=== PATIENT | female | born 1960 | race Caucasian/White ===

== ENCOUNTER 2020-10-17 14:51 | Outpatient (REF) | payer BC, SELFPAY ==
--- NOTE | ~2020-10-17 | MM_ITS ---
EXAMINATION: MM SCREENING DIGITAL BREAST TOMOSYNTHESIS, BILATERAL CLINICAL INFORMATION: Screening. Asymptomatic. The lifetime risk of breast cancer based on the Tyrer-Cuzick Model is 5%. COMPARISON: Mammography: 08/12/2019, 08/06/2018, 01/02/2017 TECHNIQUE: Digital breast tomosynthesis is performed in both the craniocaudal and mediolateral oblique views along with computer-aided detection (CAD). Synthesized 2D images are generated from the tomosynthesis. FINDINGS: There are scattered areas of fibroglandular density (ACR BI-RADS breast composition Category b). There are no significant masses, abnormal calcifications, or other abnormalities. Parenchymal pattern is similar to prior studies. The axilla and skin contours are unremarkable. MM/MM tomosynthesis screening BI IMPRESSION: No mammographic evidence of malignancy. ASSESSMENT: BI-RADS 1: Negative RECOMMENDATION: Routine annual mammography screening. This patient's information was entered into a reminder system with a target due date for their next mammogram.
== END 2020-10-17 14:52 | disposition home or self-care (01) ==
LOC: HO.MAMMO 14:51
PROVIDERS: Visit Provider Internal Medicine
DX: Z12.31 Encounter for screening mammogram for malignant neoplasm of breast (principal)
CPT/HCPCS: 77063; 77067

== ENCOUNTER 2021-04-19 07:36 | Outpatient (REF) | payer BC, SELFPAY ==
[2021-04-19 11:16] LABS: MANUAL DIFF FLAG NO
[2021-04-19 11:57] LABS: Basophils Percent Auto 0.9 % (0-2); Eosinophils Absolute Auto 0.2 X10*3/uL (0.0-0.4); Eosinophils Percent Auto 3.4 % (0-4); Hematocrit 39.3 % (37-47); Hemoglobin 13.4 g/dl (12.0-16.0); Lymphocytes Absolute Auto 1.2 X10*3/uL (1.2-4.9); Lymphocytes Percent Auto 26.2 % (20-40); Mean Corpuscular HGB Conc 34.1 g/dl (31.0-35.0); Mean Corpuscular Hemoglobin 30.9 pg (27.0-33.0); Mean Corpuscular Volume 90.8 fL (80-98); Mean Platelet Volume 11.7 fL (9.4-12.3); Monocytes Absolute Auto 0.5 X10*3/uL (0.1-1.2); Monocytes Percent Auto 10.4 % (2-11); Neutrophils Absolute Auto 2.6 X10*3/uL (2.0-8.3); Neutrophils Percent Auto 59.1 % (45-73); Platelet Count 219 X10*3/uL (160-400); Red Blood Count 4.33 X10*6/uL (4.20-5.50); Red Cell Distribution Width 12.4 % (11.0-16.0); White Blood Count 4.4 X10*3/uL (4.8-10.8)
[2021-04-19 12:06] LABS: Thyroid Stimulating Hormone 2.23 uIU/mL (0.32-4.0)
[2021-04-19 12:15] LABS: Alanine Aminotransferase 22 U/L (0-31); Albumin Level 4.1 g/dL (3.5-5.0); Alkaline Phosphatase 90 U/L (39-117); Anion Gap 14 (12-20); Aspartate Amino Transferase 20 U/L (5-31); Bilirubin Total 0.2 mg/dL (0.0-1.0); Blood Urea Nitrogen 17 mg/dL (9-16); Calcium 9.2 mg/dL (8.4-10.2); Carbon Dioxide 24 mmol/L (22-29); Chloride 107 mmol/L (96-108); Cholesterol 282 mg/dL; Estimated Glomerular Filt Rate > 60; Glucose Fasting 89 mg/dL (60-99); HDL Cholesterol 59 mg/dL; LDL Cholesterol Calculated 203 mg/dl; Potassium 4.2 mmol/L (3.3-5.1); Sodium 141 mmol/L (135-145); Triglycerides 103 mg/dL
== END 2021-04-19 07:37 | disposition home or self-care (01) ==
LOC: HO.HMGCLDS 07:36
PROVIDERS: PCP Internal Medicine; Visit Provider Internal Medicine
DX: H53.8 Other visual disturbances (principal); R53.1 Weakness
CPT/HCPCS: 36415; 80053; 80061; 84443; 85025

== ENCOUNTER 2021-04-20 09:44 | Outpatient (REF) | payer BC, SELFPAY ==
--- NOTE | ~2021-04-20 | US_ITS ---
EXAMINATION: US EXTRACRANIAL CAROTID DUPLEX, BILATERAL CLINICAL INFORMATION: Blurry vision left eye. COMPARISON: None TECHNIQUE: Real-time ultrasound and Doppler techniques (integrating B-mode 2-D vascular images, Doppler spectral analysis and color-flow Doppler imaging) were utilized to interrogate the extracranial carotid arteries, the vertebral arteries and proximal subclavian arteries bilaterally. The degree of stenosis is determined by criteria similar to NASCET. FINDINGS: Right Side: 1. There is no atherosclerotic plaque seen in the bifurcation/proximal ICA region. 2. The common carotid artery PSV proximally is 77 cm/s and distally 74 cm/s. 3. The proximal internal carotid artery velocities are 47 cm/s systolic and 19 cm/s diastolic. 4. The proximal external carotid artery PSV is 86 cm/s. 5. The vertebral artery shows 64 flow. 6. The subclavian artery waveforms are normal. Left Side: 1. There is hard atherosclerotic plaque seen in the bifurcation/proximal ICA region. 2. The common carotid artery PSV proximally is 87 cm/s and distally 77 cm/s. 3. The proximal internal carotid artery velocities are 66 cm/s systolic and 21 cm/s diastolic. 4. The proximal external carotid artery PSV is 76 cm/s. 5. The vertebral artery shows 53 flow. 6. The subclavian artery waveforms are normal. US/US carotid duplex BI IMPRESSION: 1. RIGHT: No hemodynamically significant stenosis in right carotid artery. 2. LEFT: No hemodynamically significant stenosis in left carotid artery. 3. Normal antegrade flow seen in both vertebral arteries. 4. The subclavian arteries are patent with normal velocities.
== END 2021-04-20 09:45 | disposition home or self-care (01) ==
LOC: HO.HMGCX 09:44
PROVIDERS: PCP Internal Medicine; Visit Provider Internal Medicine
DX: H53.8 Other visual disturbances (principal)
CPT/HCPCS: 93880

== ENCOUNTER 2021-04-23 15:12 | Outpatient (REF) | payer BC, SELFPAY ==
--- NOTE | ~2021-04-23 | XR_ITS ---
EXAMINATION: XR HIP, LEFT CLINICAL INFORMATION: Hip arthritis. COMPARISON: None TECHNIQUE: Two views of the left hip. FINDINGS: No fracture or dislocation. No joint space narrowing or marginal osteophytes. No osseous erosion. No abnormal soft tissue calcification. XR/XR hip LT min 2V IMPRESSION: Unremarkable examination.
--- NOTE | ~2021-04-23 | XR_ITS ---
EXAMINATION: XR CERVICAL SPINE CLINICAL INFORMATION: Cervical spondylosis. COMPARISON: None TECHNIQUE: AP, lateral, open-mouth, and bilateral oblique views of the cervical spine. FINDINGS: Minimal grade 1 anterolisthesis of C5 and C6. No acute fracture. No loss of vertebral body height. Loss of intervertebral disc height with tiny anterior endplate osteophytes at C6-C7. No lytic or blastic osseous lesion. No significant neural foraminal stenosis. Unremarkable prevertebral soft tissues. No abnormal soft tissue calcification. XR/XR cervical spine 4V IMPRESSION: 1. Minimal grade 1 anterolisthesis of C5 and C6. 2. Mild degenerative disc disease at C6-C7.
== END 2021-04-23 15:13 | disposition home or self-care (01) ==
LOC: HO.XRAY 15:12
PROVIDERS: Visit Provider Psychiatry & Neurology Neurology
DX: M47.812 Spondylosis without myelopathy or radiculopathy, cervical region (principal); M16.12 Unilateral primary osteoarthritis, left hip
CPT/HCPCS: 72050; 73502

== ENCOUNTER 2021-05-04 18:41 | Outpatient (REF) | payer BC, SELFPAY ==
--- NOTE | ~2021-05-04 | MR_ITS ---
MRI OF THE BRAIN WITHOUT IV CONTRAST INDICATION: Right hemisphere stroke. COMPARISON: None available. TECHNIQUE: Multiplanar multisequence MR imaging of the brain was obtained without IV contrast. FINDINGS: There is a round 1.6 cm extra-axial mass at the high right frontal convexity, most compatible with a meningioma. No mass effect and no adjacent parenchymal edema. There is no hydrocephalus, extra-axial surface collection, or herniation. There is mild chronic microangiopathy. The major flow voids at the skull base are preserved. There is no acute infarct on diffusion-weighted imaging. There is artifact on the diffusion series within the left elena. There is no intracranial hemorrhage on the gradient recalled echo acquisition. The midline structures are normal. There is normal variant 2 mm cerebellar tonsillar ectopia without true Chiari malformation. The cerebellum and brainstem are normal. The craniocervical junction is normal. Osseous marrow signal intensity is homogenous. The visualized soft tissues are unremarkable. MR/MR head/brain wo con IMPRESSION: - No acute intracranial findings. No acute infarcts. - There is a round 1.6 cm extra-axial mass at the high right frontal convexity, most compatible with a meningioma. No mass effect and no adjacent parenchymal edema. - There is mild chronic microangiopathy.
== END 2021-05-04 18:42 | disposition home or self-care (01) ==
LOC: HO.MRI 18:41
PROVIDERS: Visit Provider Psychiatry & Neurology Neurology
DX: I63.9 Cerebral infarction, unspecified (principal)
CPT/HCPCS: 70551

== ENCOUNTER 2022-01-04 07:21 | Outpatient (REF) | payer BC, SELFPAY ==
[2022-01-04 11:12] LABS: MANUAL DIFF FLAG NO
[2022-01-04 11:17] LABS: Basophils Absolute Auto 0.1 X10*3/uL (0.0-0.2); Basophils Percent Auto 1.2 % (0-2); Eosinophils Absolute Auto 0.1 X10*3/uL (0.0-0.4); Eosinophils Percent Auto 2.6 % (0-4); Hematocrit 41.5 % (37.0-47.0); Hemoglobin 13.6 g/dl (12.0-16.0); Imm Gran Abs Auto 0.01 X10*3/uL (0.00-0.03); Imm Gran Pct Auto 0.2 % (0.0-0.4); Lymphocytes Absolute Auto 1.6 X10*3/uL (1.2-4.9); Lymphocytes Percent Auto 32.1 % (20-40); Mean Corpuscular HGB Conc 32.8 g/dl (31.0-35.0); Mean Corpuscular Hemoglobin 29.9 pg (27.0-33.0); Mean Corpuscular Volume 91.2 fL (80.0-98.0); Mean Platelet Volume 11.9 fL (9.4-12.3); Monocytes Absolute Auto 0.4 X10*3/uL (0.1-1.2); Monocytes Percent Auto 8.1 % (2-11); Neutrophils Absolute Auto 2.8 x10*3/uL (2.0-8.3); Neutrophils Percent Auto 55.8 % (45-73); Platelet Count 222 X10*3/uL (160-400); Red Blood Count 4.55 X10*6/uL (4.20-5.50); Red Cell Distribution Width 12.7 % (11.0-16.0); White Blood Count 5.1 X10*3/uL (4.8-10.8)
[2022-01-04 11:44] LABS: Alanine Aminotransferase 17 U/L (0-31); Albumin Level 4.1 g/dL (3.5-5.0); Alkaline Phosphatase 114 U/L (39-117); Anion Gap 10 (12-20); Aspartate Amino Transferase 18 U/L (5-31); Bilirubin Total 0.6 mg/dL (0.0-1.0); Blood Urea Nitrogen 17 mg/dL (9-16); Calcium 9.3 mg/dL (8.4-10.2); Carbon Dioxide 25 mmol/L (22-29); Chloride 107 mmol/L (96-108); Cholesterol 246 mg/dL; Estimated Glomerular Filt Rate > 60; Glucose Fasting 93 mg/dL (60-99); HDL Cholesterol 53 mg/dL; LDL Cholesterol Calculated 143 mg/dl; Potassium 4.2 mmol/L (3.3-5.1); Sodium 138 mmol/L (135-145); Total Protein 7.1 g/dL (6.5-8.0); Triglycerides 254 mg/dL
[2022-01-04 11:54] LABS: Thyroid Stimulating Hormone 2.72 uIU/mL (0.32-4.0); Vitamin D 25-OH Total 29.1 ng/mL (>30)
== END 2022-01-04 07:22 | disposition home or self-care (01) ==
LOC: HO.HMGCLDS 07:21
PROVIDERS: Visit Provider Internal Medicine
DX: E78.00 Pure hypercholesterolemia, unspecified (principal); K50.00 Crohn's disease of small intestine without complications; N39.3 Stress incontinence (female) (male); M79.671 Pain in right foot
CPT/HCPCS: 36415; 80053; 80061; 82306; 84443; 85025

== ENCOUNTER 2022-08-15 08:19 | Outpatient (REF) | payer BC, SELFPAY ==
[2022-08-15 12:01] LABS: Cholesterol 235 mg/dL; HDL Cholesterol 58 mg/dL; LDL Cholesterol Calculated 151 mg/dl; Triglycerides 134 mg/dL
[2022-08-15 12:24] LABS: Vitamin D 25-OH Total 24.7 ng/mL (>30)
== END 2022-08-15 08:20 | disposition home or self-care (01) ==
LOC: HO.HMGCLDS 08:19
PROVIDERS: PCP Internal Medicine; Visit Provider Internal Medicine
DX: K50.00 Crohn's disease of small intestine without complications (principal); E78.00 Pure hypercholesterolemia, unspecified
CPT/HCPCS: 36415; 80061; 82306

== ENCOUNTER 2022-09-27 11:34 | Outpatient (REF) | payer BC, SELFPAY ==
[2022-09-27 12:21] LABS: COVID-19 Test Positive (Negative); IDNOW Serial# 9DB6401D
== END 2022-09-27 11:35 | disposition home or self-care (01) ==
LOC: HO.LAB 11:34
PROVIDERS: Visit Provider Internal Medicine
DX: Z20.822 Contact with and (suspected) exposure to COVID-19 (principal)
CPT/HCPCS: 87635; C9803

== ENCOUNTER 2023-02-06 11:39 | Outpatient (REF) | payer BC, SELFPAY ==
--- NOTE | ~2023-02-06 | MM_ITS ---
EXAMINATION: MM SCREENING DIGITAL BREAST TOMOSYNTHESIS, BILATERAL CLINICAL INFORMATION: Screening. Asymptomatic. The lifetime risk of breast cancer based on the Tyrer-Cuzick Model is 4.1%. COMPARISON: Mammography: 10/17/2020, 08/12/2019, 08/06/2018, and dating back to 2016. TECHNIQUE: Digital breast tomosynthesis is performed in both the craniocaudal and mediolateral oblique views along with computer-aided detection (CAD). Synthesized 2D images are generated from the tomosynthesis. FINDINGS: There are scattered areas of fibroglandular density (ACR BI-RADS breast composition Category b). There are no suspicious masses, suspicious grouped calcifications, or areas of architectural distortion. The parenchymal pattern is stable from prior exams. There are no skin changes. MM/MM tomosynthesis screening BI IMPRESSION: No mammographic evidence of malignancy. ASSESSMENT: BI-RADS BI-RADS 1 - Negative RECOMMENDATION: Routine annual mammography screening. 1 year F/U This examination should not preclude the clinical evaluation of a suspicious palpable abnormality. This patient's information was entered into a reminder system with a target due date for their next mammogram.
== END 2023-02-06 11:40 | disposition home or self-care (01) ==
LOC: HO.MAMMO 11:39
PROVIDERS: PCP Internal Medicine; Visit Provider Internal Medicine
DX: Z12.31 Encounter for screening mammogram for malignant neoplasm of breast (principal)
CPT/HCPCS: 77063; 77067

== ENCOUNTER → 2023-02-06 11:45 | Outpatient (BNV) | payer BC, SELFPAY | PROVIDERS: PCP Internal Medicine; Visit Provider Radiology Diagnostic Radiology | DX: Z12.31 Encounter for screening mammogram for malignant neoplasm of breast (principal) | CPT/HCPCS: 77063; 77067 ==

== ENCOUNTER 2023-03-18 14:52 | Outpatient (AMB) | payer BC, SELFPAY ==
--- NOTE | 2023-03-18 14:56 | MHC.OFFVIS ---
Intake Intake Visit Reasons: Large Lipoma RT knee Plc Engineer Required: No Promotions Executive: Promotions Executive Present Accompanied by: Self / Same As Patient Allergies amoxicillin Allergy (Unknown, Unverified 03/18/23 15:01) hives, rash, rash, rash, rash Medication List - Last Reconciled 03/20/23 by Ugo Samayoa MD coenzyme Q10 (Co Q-10) 100 mg PO DAILY pravastatin 40 mg PO DAILY vit C-vit L-Fb-Bs-lutein-zeax 250 mg-200 unit -12.5 mg-1 mg (ICaps AREDS2 (copper citrate)) 1 tab PO BID HPI HPI Comments History of Present Illness Details 62-year-old female patient presenting for evaluation of a soft tissue lump located in the right leg as well as a painful cyst located in the left buttock. The lump has gradually increased in size has become quite noticeable just below the knee. She denies any significant pain, redness or discharge. Denies any previous surgery or trauma at this location but did report excision on the opposite side of right leg. In addition she notes a cystic lesion in the posterior left buttock which occasionally is painful. She denies any infection the site but would like to have the lesion removed. [facility] Surgical History History of urinary tract surgery History of excision of intestinal structure Social History Alcohol intake: current Alcohol intake frequency: holidays/special occasions only Patient Tobacco Use Status: Never used Tobacco Review of Systems Const All systems reviewed & are unremarkable except as noted in HPI and below Denies chills, Denies fever(s), Denies headache(s), Denies poor appetite and Denies weakness ENT Denies headache(s) Card Denies chest pain, Denies irregular heart rhythm, Denies palpitations and Denies dyspnea Resp Denies cough, Denies excessive phlegm production and Denies dyspnea GI Denies abdominal pain, Denies bloating, Denies change in bowel habits, Denies constipation, Denies heartburn, Denies diarrhea, Denies nausea and Denies vomiting Denies urinary frequency Musc Denies back pain, Denies muscle weakness and Denies numbness Skin/Breast Denies changing lesions and Denies unusual bruising Neuro Denies headache(s), Denies numbness, Denies paresthesias and Denies weakness Psych Denies anxiety and Denies depression Endo Denies palpitations Payam/Lymph Denies lymphadenopathy Physical Exam Const General: cooperative and no acute distress Nutritional Appearance: well nourished Orientation/consciousness: patient oriented x3 Limitations: no limitations HEENT Head: Yes normocephalic and Yes atraumatic Ears: hearing grossly normal bilaterally Resp Effort & Inspection: normal respiratory effort, no audible wheezes, no cough and no respiratory distress Cardio Jugular venous distension: no JVD GI Inspection: Yes normal to inspection Skin Other: Warm, dry, no rash Neuro General: patient oriented x3 Extrem Other: Soft tissue mass along the medial aspect of the right calf just below the knee measuring approximately 3-4 cm in diameter. No skin ulceration or bleeding is identified. The lesion is nontender to palpation. There is a scar along the lateral surface but appears to be unrelated to the soft tissue mass. General: Yes no clubbing, cyanosis or edema Upper/lower leg/hip images: 1. Site of palpable soft tissue mass suggestive of a lipoma, 3-4 cm in diameter. 2. 1.5 cm epidermal inclusion cyst left posterior buttock Assessment & Plan Assessment & Plan (1) Lipoma: Code(s): D17.9 - Benign lipomatous neoplasm, unspecified Qualifiers: Lipoma location: lower extremity Laterality: right Qualified Code(s): D17.23 - Benign lipomatous neoplasm of skin and subcutaneous tissue of right leg Plan: Patient presents with a soft tissue mass located in the medial right calf just below the knee. The finding is most suggestive of a lipoma. She has requested excision of this lesion. I reviewed the procedure, risks, and alternatives, and she consents to an excision of the right calf lipoma as a minor surgery under local anesthesia. (2) Epidermal inclusion cyst: Code(s): L72.0 - Epidermal cyst Plan: Patient has a 1.5 cm epidermal inclusion cyst of the right posterior buttock which does not appear to be infected at this time. I recommended an excision at the same time as the lipoma, again under local anesthesia as a minor surgery. After reviewing the procedure, risks, and alternatives, she consents to excision of the left buttock epidermal inclusion cyst. Coding Level of Care Code New Pt Level 4 (33845) Diagnoses Lipoma of right lower extremity D17.23 Lipoma location: lower extremity Laterality: right Epidermal inclusion cyst L72.0
== END 2023-03-18 15:27 | disposition home or self-care (01) ==
PROVIDERS: PCP Internal Medicine; Visit Provider Surgery
DX: D17.23 Benign lipomatous neoplasm of skin and subcutaneous tissue of right leg (principal); L72.0 Epidermal cyst
CPT/HCPCS: 99204

== ENCOUNTER → 2023-03-18 14:52 | Outpatient (BNVA) | payer BC, SELFPAY | PROVIDERS: PCP Internal Medicine; Visit Provider Surgery ==

== ENCOUNTER 2023-05-15 10:48 | Outpatient (REF) | payer MEDICARE, SELFPAY ==
[2023-05-15 10:55] VITALS: BMI 24.1
[2023-05-15 10:57] VITALS: BP 108/60; PULSE 69; RESP 16; TEMP 36.4; O2SAT 99
[2023-05-15 12:20] VITALS: BP 119/71; PULSE 74; RESP 16; O2SAT 97
--- NOTE | 2023-05-15 12:41 | W.PM.OPN ---
Operative Note Operative Note Date of Service: 05/15/23 Narrative: Preoperative diagnosis: Lipoma right leg, cyst left buttock Postoperative diagnosis: Lipoma right leg, lipoma left buttock Procedure: Excision lipoma right leg and left buttock Surgeon: Ugo Samayoa MD Insurance Sales Professional: None Anesthesia: Sensorcaine 0.5% with epinephrine Indications for procedure: 63-year-old female patient presenting with a soft tissue mass located over the right leg just below the knee as well as a cystic appearing lesion in the left mid buttock. Lesion in the knee measured approximately 6 cm in diameter while the lesion in the left buttock measured approximately 1.5 cm. Operative findings: Lipoma of right leg, 6 cm, lipoma left buttock 1.5 cm Specimen: Lipoma of right leg and left buttock Estimated blood loss: 5 mL Complications: None Procedure details: Patient was brought to the minor surgery suite and placed in a supine position. The site of the lipoma in the right leg was confirmed by the patient. The site of the left buttock lesion was also confirmed by the patient. After assuring informed consent the skin of the right leg was prepped with Betadine and draped in a sterile fashion. Local anesthesia was then infiltrated in longitudinal fashion directly over the lipoma. Incision was then made with a 15 blade and carried out through subcutaneous tissue. Hemostasis was assured using 4-0 Polysorb suture. Dissection was continued down to lipoma. Lipoma was firmly adherent to the surrounding tissue and was excised circumferentially. Several suture pods were identified extending laterally and inferiorly. These were included in the specimen. The lesion was completely excised and sent to pathology for further examination. After assuring hemostasis the dermis was reapproximated using interrupted 4-0 Polysorb sutures. Skin was then closed using a running subcuticular 4-0 Polysorb suture. Steri-Strips, 2 x 2 gauze and Tegaderm were then applied. Attention was then directed to the left buttock lesion. She was placed in a prone position. The skin over the lesion was then prepped with Betadine and draped in a sterile fashion. An elliptical incision was then made oriented transversely around the palpable lesion. This was carried out through subcutaneous tissue down to the lesion. This was determined to be a lipoma. The lesion was passed off the table and sent to pathology for further examination. Dermis was then reapproximated using interrupted 4-0 Polysorb suture. Skin was closed using interrupted 4-0 nylon suture. Sterile dressings consisting of 2 x 2 gauze and Tegaderm were then applied. The patient tolerated the procedure well. She was discharged to home in stable condition.
== END 2023-05-15 10:49 | disposition home or self-care (01) ==
LOC: HO.MS 10:48
PROVIDERS: Visit Provider Surgery
PROC: (CPT 11406; principal; 2023-05-15 11:00)
PROC: (CPT 11406; 2023-05-15 11:00)
DX: D17.23 Benign lipomatous neoplasm of skin and subcutaneous tissue of right leg (principal); D17.1 Benign lipomatous neoplasm of skin and subcutaneous tissue of trunk
CPT/HCPCS: 11406; 11402; 88304

== ENCOUNTER → 2023-05-15 10:48 | Outpatient (BNV) | payer MEDICARE, SELFPAY | PROVIDERS: Visit Provider Surgery | DX: D17.23 Benign lipomatous neoplasm of skin and subcutaneous tissue of right leg (principal); D17.1 Benign lipomatous neoplasm of skin and subcutaneous tissue of trunk | CPT/HCPCS: 21930; 27632 ==

== ENCOUNTER 2023-05-29 09:18 | Outpatient (AMB) | payer BC, MEDICARE, SELFPAY ==
[2023-05-29 09:28] VITALS: BP 115/55; PULSE 64
--- NOTE | 2023-05-29 09:28 | MHC.OFFVIS ---
Intake Vital Signs 05/29/23 09:28 Weight 147 lb BP 115/55 L Blood Pressure Location Rt brachial Position Sitting Pulse 64 Intake Visit Reasons: S/p Exc lipoma RT lower extremity Intake Note: Patient is seen in office for post op assessment post excision lipoma right leg and left buttock. Reports incisions healing well. Steri strip on Rt lower leg fell off. MS: 05/15/23 Cps Team Lead Required: No Accompanied by: Self / Same As Patient Allergies amoxicillin Allergy (Unknown, Unverified 05/29/23 09:29) hives, rash, rash, rash, rash HPI HPI Comments History of Present Illness Details Patient returns following excision of a lipoma of the right leg and right posterior buttock. She tolerated the procedure well and reports no problems after the surgery. Pathology confirmed lipoma both locations. She returns today for suture removal and wound check. [facility] Surgical History History of excision of mass (05/15/23) History of urinary tract surgery History of excision of intestinal structure Social History Alcohol intake: current Alcohol intake frequency: holidays/special occasions only Patient Tobacco Use Status: Never used Tobacco Physical Exam Vital Signs: Last Vital Signs Pulse 64 05/29/23 09:28 BP 115/55 L 05/29/23 09:28 Const General: healthy appearing Extrem Other: Right lower extremity incision is clean, dry, and intact without hematoma or seroma. No evidence of wound infection. Right buttock wound is clean, dry, and intact. Sutures are intact. The sutures removed incision found to be well healed. Assessment & Plan Assessment & Plan (1) Lipoma: Code(s): D17.9 - Benign lipomatous neoplasm, unspecified Qualifiers: Lipoma location: lower extremity Laterality: right Qualified Code(s): D17.23 - Benign lipomatous neoplasm of skin and subcutaneous tissue of right leg Plan 63-year-old female patient status post excision of lipoma of the right leg and right buttock. She tolerated the procedure well and her wounds are healing nicely. Pathology confirmed a lipoma at both sites. She should follow up as needed. Coding Level of Care Code Global (23023) Diagnoses Lipoma of right lower extremity D17.23 Lipoma location: lower extremity Laterality: right
== END 2023-05-29 09:42 | disposition home or self-care (01) ==
PROVIDERS: PCP Internal Medicine; Visit Provider Surgery
DX: D17.23 Benign lipomatous neoplasm of skin and subcutaneous tissue of right leg (principal)
CPT/HCPCS: 99024

== ENCOUNTER → 2023-05-29 09:18 | Outpatient (BNVA) | payer BC, MEDICARE, SELFPAY | PROVIDERS: PCP Internal Medicine; Visit Provider Surgery ==

== ENCOUNTER 2023-06-16 08:50 | Outpatient (REF) | payer MEDICARE, SELFPAY ==
[2023-06-16 12:01] LABS: Cholesterol 207 mg/dL (<200); HDL Cholesterol 60 mg/dL (>40); LDL Cholesterol Calculated 118 mg/dL (<100); Triglycerides 147 mg/dL (<150)
[2023-06-16 12:21] LABS: Vitamin D 25-OH Total 35.7 ng/mL (>30)
== END 2023-06-16 08:51 | disposition home or self-care (01) ==
LOC: HO.HMGCLDS 08:50
PROVIDERS: PCP Internal Medicine; Visit Provider Internal Medicine
DX: E78.00 Pure hypercholesterolemia, unspecified (principal); K50.00 Crohn's disease of small intestine without complications
CPT/HCPCS: 36415; 80061; 82306

== ENCOUNTER 2023-09-23 16:15 | Outpatient (REF) | payer MEDICARE, OTHER, SELFPAY ==
--- NOTE | ~2023-09-23 | MR_ITS ---
EXAMINATION: MR BRAIN WITHOUT AND WITH CONTRAST CLINICAL INFORMATION: Meningioma. Follow-up. COMPARISON: Brain MRI 05/04/2021. TECHNIQUE: Multiplanar MR imaging of the brain was performed without and with contrast. A total of 6 mL Gadavist was utilized for this examination. FINDINGS: Postcontrast images reveal an enhancing dome-shaped dural based mass over the right frontal convexity that measures up to 1.7 cm in maximal transaxial dimension which represents no substantial change when compared to prior brain MRI from 05/04/2021. There are no abnormal signal changes within the adjoining right superior frontal gyrus. No abnormal mass or enhancement visualized elsewhere within the intracranial compartment. There is no intracranial mass effect or midline shift. Lateral and third ventricles are normal. No hydrocephalus. Midline structures including the cervicomedullary junction are normal. No acute bone marrow signal changes. There are a few scattered nonspecific foci of T2 FLAIR signal hyperintensity within the periventricular white matter. No acute territorial infarct. No pathological magnetic susceptibility artifact. Intracranial vascular flow voids are maintained. There is no mastoid middle ear effusion. Trivial mucosal thickening within the ethmoid air cells. Globes and orbits are symmetric. MR/MR head/brain wo/w con IMPRESSION: Stable examination. The size of a right frontal convexity meningioma has not substantial changed when compared to prior imaging from 05/04/2021. No abnormal signal changes within the adjoining right superior frontal gyrus.
[2023-09-23] MEDS: gadobutroL 7.5 ML VIAL IVPUSH (17:13)
== END 2023-09-23 16:16 | disposition home or self-care (01) ==
LOC: HO.MRI 16:15
PROVIDERS: PCP Internal Medicine; Visit Provider Internal Medicine
DX: D32.9 Benign neoplasm of meninges, unspecified (principal)
CPT/HCPCS: 70553; A9585

== ENCOUNTER 2023-11-08 08:00 | Outpatient (REF) | payer MEDICARE, OTHER, SELFPAY ==
[2023-11-08 11:33] LABS: MANUAL DIFF FLAG NO
[2023-11-08 11:46] LABS: Basophils Absolute Auto 0.1 X10*3/uL (0.0-0.2); Basophils Percent Auto 1.5 % (0-2); Eosinophils Absolute Auto 0.1 X10*3/uL (0.0-0.4); Eosinophils Percent Auto 2.7 % (0-4); Hematocrit 41.4 % (37.0-47.0); Hemoglobin 13.9 g/dl (12.0-16.0); Imm Gran Abs Auto 0.01 X10*3/uL (0.00-0.03); Imm Gran Pct Auto 0.2 % (0.0-0.4); Lymphocytes Absolute Auto 1.6 X10*3/uL (1.2-4.9); Lymphocytes Percent Auto 39.7 % (20-40); Mean Corpuscular HGB Conc 33.6 g/dl (31.0-35.0); Mean Corpuscular Hemoglobin 30.2 pg (27.0-33.0); Mean Corpuscular Volume 89.8 fL (80.0-98.0); Mean Platelet Volume 11.7 fL (9.4-12.3); Monocytes Absolute Auto 0.4 X10*3/uL (0.1-1.2); Monocytes Percent Auto 9.5 % (2-11); Neutrophils Absolute Auto 1.9 x10*3/uL (2.0-8.3); Neutrophils Percent Auto 46.4 % (45-73); Platelet Count 211 X10*3/uL (160-400); Red Blood Count 4.61 X10*6/uL (4.20-5.50); Red Cell Distribution Width 13.1 % (11.0-16.0)
[2023-11-08 12:25] LABS: Alanine Aminotransferase 13 U/L (0-31); Albumin Level 4.1 g/dL (3.5-5.0); Alkaline Phosphatase 95 U/L (39-117); Anion Gap 11 (12-20); Aspartate Amino Transferase 17 U/L (5-31); Bilirubin Total 0.5 mg/dL (0.0-1.0); Blood Urea Nitrogen 16 mg/dL (9-16); Calcium 9.5 mg/dL (8.4-10.2); Carbon Dioxide 26 mmol/L (22-29); Chloride 108 mmol/L (96-108); Cholesterol 207 mg/dL (<200); Estimated Glomerular Filt Rate > 60; Glucose Fasting 89 mg/dL (60-99); HDL Cholesterol 54 mg/dL (>40); LDL Cholesterol Calculated 132 mg/dL (<100); Potassium 4.3 mmol/L (3.3-5.1); Sodium 141 mmol/L (135-145); Total Protein 7.1 g/dL (6.5-8.0); Triglycerides 109 mg/dL (<150); Vitamin D 25-OH Total 42.3 ng/mL (>30)
[2023-11-08 12:32] LABS: Folate 5.3 ng/mL (> or = 4.0); Vitamin B12 244 pg/mL (200-900)
== END 2023-11-08 08:01 | disposition home or self-care (01) ==
LOC: HO.HMGCLDS 08:00
PROVIDERS: PCP Internal Medicine; Visit Provider Internal Medicine
DX: E78.00 Pure hypercholesterolemia, unspecified (principal); K50.00 Crohn's disease of small intestine without complications; D32.9 Benign neoplasm of meninges, unspecified
CPT/HCPCS: 36415; 80053; 80061; 82306; 82607; 82746; 84443; 85025

== ENCOUNTER 2023-12-26 09:39 | Outpatient (AMB) | payer MEDICARE, OTHER, SELFPAY ==
[2023-12-26 09:38] VITALS: BP 112/78; PULSE 73; TEMP 36.2; O2SAT 99; BMI 23.1
--- NOTE | 2023-12-26 09:38 | MHC.OFFWIV ---
Intake Vital Signs 12/26/23 09:38 Height 5 ft 5 in Weight 139 lb BMI 23.1 BP 112/78 Blood Pressure Location Lt brachial Position Sitting Pulse 73 Pulse Source Pulse Oximeter Temp 97.2 F Temp Source Temporal Artery Scan Pulse Oximetry (%) 99 Oxygen Delivery Method Room Air Intake Visit Reasons: EP Sinus pressure/ears blocked Intake Note: pt is here today for sinus pressure ear blocked started 2 weeks ago Patient Tobacco Use Status: Never used Tobacco Allergies amoxicillin Allergy (Unknown, Unverified 12/26/23 09:43) hives, rash, rash, rash, rash Do you need a note to return to daycare/school/sports/work: No HPI HPI Comments History of Present Illness Details This is a 63-year-old female who presented to the walk-in clinic complaining of blocked ears and sinus congestion. Patient states her symptoms started with blocked ears approximately 2 weeks ago. She went swimming and got some water in her ears. She states her ears have been black since then. She then started to develop sinus congestion. She denies any significant rhinorrhea or nasal drainage. She denies fevers or chills. She states her ears are slightly sore in the morning although denies any otalgia throughout the day. [facility] Surgical History History of excision of mass (05/15/23) History of urinary tract surgery History of excision of intestinal structure Social History Alcohol intake: current Alcohol intake frequency: holidays/special occasions only Comment: NONE Patient Tobacco Use Status: Never used Tobacco Review of Systems Const All systems reviewed & are unremarkable except as noted in HPI and below Reports no additional complaints Eyes Reports no additional complaints ENT Reports no additional complaints Card Reports no additional complaints Resp Reports no additional complaints GI Reports no additional complaints Reports no additional complaints Musc Reports no additional complaints Skin/Breast Reports system reviewed and no additional complaints, except as documented Neuro Reports no additional complaints Psych Reports no additional complaints Endo Reports no additional complaints Payam/Lymph Reports no additional complaints Aller/Immun Reports no additional complaints Physical Exam Vital Signs: Last Vital Signs Temp 97.2 F 12/26/23 09:38 Pulse 73 12/26/23 09:38 BP 112/78 12/26/23 09:38 Pulse Ox 99 12/26/23 09:38 Oxygen Delivery Method Room Air 12/26/23 09:38 BMI result Body Mass Index 23.1 Const Other: Vital signs reviewed. Constitutional: Non-toxic appearing. No acute distress. Well-developed and well-nourished. HEENT: Normocephalic and atraumatic. Bilateral cerumen impaction. Following cerumen removal, patient's external auditory canals are clear without erythema, edema, or otorrhea. Her tympanic membranes are clear bilaterally without bulging or erythema. Skin: Warm and dry. No rashes or lesions noted. Neck: Full and painless range of motion. No cervical lymphadenopathy. Cardio: Regular rate. No lower extremity edema. Pulmonary: No respiratory distress. No accessory muscle usage. Musculoskeletal: Normal range of motion in joints throughout the body. No deformity or other signs of injury. Neuro: Alert and oriented x4. Cranial nerves 2-12 grossly intact. No focal deficits appreciated. Psych: Normal mood and affect. Office Procedures Cerumen Removal From which ear canal was the cerumen removed: bilateral Removal: irrigation and cerumen loop/spoon Notes: patient tolerated procedure well (She did have some mild nausea following procedure although this has resolved.) and ear canal clear [id number] Irrigation/Lavage Assessment & Plan Assessment & Plan (1) Bilateral impacted cerumen: Code(s): H61.23 - Impacted cerumen, bilateral Plan: This is a 63-year-old female who presented to the walk-in clinic complaining of blocked ears and sinus congestion for the past 2 weeks. On physical examination, she has cerumen impaction bilaterally. Cerumen removal was performed. On re-examination, patient feels significantly better and her external auditory canals are clear without any evidence of otitis media or otitis externa. Recommended utilizing decongestant such as pseudoephedrine or guaifenesin. I also recommended the patient utilize [id number] Debrox drops if this happens again. Patient bought ear plugs to utilize the next time she swims in her pool. Patient advised to follow-up here for persistent/worsening or recurrent symptoms. Patient verbalized understanding and is agreeable with the plan. Coding Level of Care Code Est Pt Level 3 (55787) Diagnoses Bilateral impacted cerumen H61.23 CPT Codes Office Procedure - CPT: 53496-Hba Irrigation/Lavage ([id number])
== END 2023-12-26 10:27 | disposition home or self-care (01) ==
PROVIDERS: PCP Internal Medicine; Visit Provider Physician Assistant Medical
DX: H61.23 Impacted cerumen, bilateral (principal)
CPT/HCPCS: 69210; 99213

== ENCOUNTER 2024-02-16 07:53 | Outpatient (REF) | payer MEDICARE, OTHER, SELFPAY ==
--- NOTE | ~2024-02-16 | MM_ITS ---
EXAMINATION: MM SCREENING DIGITAL BREAST TOMOSYNTHESIS, BILATERAL CLINICAL INFORMATION: Screening. Asymptomatic. COMPARISON: Mammography: This study is compared with prior exams dating back to 2016. TECHNIQUE: Digital breast tomosynthesis is performed in both the craniocaudal and mediolateral oblique views along with computer-aided detection (CAD). Synthesized 2D images are generated from the tomosynthesis. FINDINGS: There are scattered areas of fibroglandular density (ACR BI-RADS breast composition Category b). There are no significant masses, abnormal calcifications, or other abnormalities. MM/MM tomosynthesis screening BI IMPRESSION: No mammographic evidence of malignancy. ASSESSMENT: BI-RADS BI-RADS 1 - Negative RECOMMENDATION: Routine annual mammography screening. 1 year F/U This examination should not preclude the clinical evaluation of a suspicious palpable abnormality. This patient's information was entered into a reminder system with a target due date for their next mammogram. Electronically signed by: Gladys Jalloh MD 03/16/2024 06:40 AM EDT
== END 2024-02-16 07:54 | disposition home or self-care (01) ==
LOC: HO.MAMMO 07:53
PROVIDERS: PCP Internal Medicine; Visit Provider Internal Medicine
DX: Z12.31 Encounter for screening mammogram for malignant neoplasm of breast (principal)
CPT/HCPCS: 77063; 77067

== ENCOUNTER → 2024-02-16 08:00 | Outpatient (BNV) | payer MEDICARE, OTHER, SELFPAY | PROVIDERS: PCP Internal Medicine; Visit Provider Radiology Diagnostic Radiology | DX: Z12.31 Encounter for screening mammogram for malignant neoplasm of breast (principal) | CPT/HCPCS: 77063; 77067 ==

== ENCOUNTER 2024-09-01 08:58 | Outpatient (AMB) | payer MEDICARE, OTHER, SELFPAY ==
--- NOTE | 2024-09-01 08:59 | A.OFFPC_ITS ---
Vital Signs 09/01/24 09:10 Height 5 ft 4.5 in Weight 146 lb BMI 24.7 BP 104/60 Blood Pressure Location Rt brachial Pulse 73 Pulse Source Pulse Oximeter Temp 97.2 F Pulse Oximetry (%) 98 Intake Visit Reasons: 6 month follow up Intake Note: no other issues Allergies amoxicillin Allergy (Unknown, Verified 09/01/24 09:22) hives, rash, rash, rash, rash Medication List - Last Reconciled 09/01/24 by Nadira Terry PA-C coenzyme Q10 (Co Q-10) 100 mg PO DAILY magnesium citrate 100 mg PO DAILY [id number] 200 mcg-15 mcg- 5 mg-1 mg (PreserVision AREDS 2 Plus Multivit) caps PO pravastatin 40 mg PO DAILY sumatriptan succinate take 1 tab at onset of headache; if no relief may repeat 1 tab after at least 2 hrs; max = 4 tabs/24 hr PO PFSH Medical History History of mammogram (~02/16/24) Migraine headache Meningioma Macular degeneration Plantar fasciitis of right foot Blurry vision, left eye Weakness of left side of body Crohn's disease Mild hypercholesterolemia Surgical History History of colonoscopy (~05/24/20) History of excision of mass (05/15/23) History of urinary tract surgery History of excision of intestinal structure Social History Alcohol intake: current Alcohol intake frequency: holidays/special occasions only Comment: NONE Patient Tobacco Use Status: Never used Tobacco Physical exam (Primary Care) Vital Signs: Last Vital Signs Temp 97.2 F 09/01/24 09:10 Pulse 73 09/01/24 09:10 BP 104/60 09/01/24 09:10 Pulse Ox 98 09/01/24 09:10 BMI result Body Mass Index 24.7 Tobacco/Smoking Status: Tobacco use Status Patient Tobacco Use Status Never used Tobacco 09/01/24 09:01 Coding Level of Care Code Est Pt Level 4 (81275) Complex EM visit Add On G2211 Diagnoses Follow-up exam, 3-6 months since previous exam Z09 Migraine headache G43.909 Meningioma D32.9 Macular degeneration H35.30 Plantar fasciitis of right foot M72.2 Crohn's disease K50.90 Mild hypercholesterolemia E78.00 Assessment & Plan Assessment & Plan (1) Follow-up exam, 3-6 months since previous exam: Code(s): Z09 - Encounter for follow-up examination after completed treatment for conditions other than malignant neoplasm Category: Medical (2) Migraine headache: Code(s): G43.909 - Migraine, unspecified, not intractable, without status migrainosus Category: Medical Plan: Patient to continue migraine 100 mg daily. Patient to continue p.r.n. sumatriptan. Patient to continue following up with Neurology as needed. Condition is chronic and stable continue to monitor. (3) Meningioma: Code(s): D32.9 - Benign neoplasm of meninges, unspecified Category: Medical Plan: Patient to continue following up with Neurology as needed. Condition is chronic and stable continue to monitor. (4) Macular degeneration: Code(s): H35.30 - Unspecified macular degeneration Category: Medical Plan: Patient to continue following up with Ophthalmology for injections in her eyes. Condition is chronic and stable continue to monitor. (5) Plantar fasciitis of right foot: Code(s): M72.2 - Plantar fascial fibromatosis Category: Medical Plan: Condition is chronic and stable continue to monitor. (6) Crohn's disease: Code(s): K50.90 - Crohn's disease, unspecified, without complications Category: Medical Plan: Condition is chronic and stable continue to monitor. (7) Mild hypercholesterolemia: Code(s): E78.00 - Pure hypercholesterolemia, unspecified Category: Medical Plan: Patient to continue coat enzyme Q10, pravastatin 40 mg. Her last LDL was on 11/08/2023 which was 132. Total cholesterol 207. Triglycerides 109. HDL 54. We would like the total cholesterol less than 200 the LDL less than 100. Will reassess labs at this visit. Will continue to monitor. Condition is chronic and stable continue to monitor. Plan Plan - Recheck fasting lipid panel to monitor hypercholesterolemia. - Continue management of migraines with magnesium and sumatriptan as needed. - Maintain dietary management for Crohn?s disease and observe symptomology. - No current need for follow-up on meningioma, per neurologist's advice. - Follow up on blood work to monitor cholesterol and other routine labs. - Encourage ongoing monitoring of macular degeneration with polisher eyeglass frames. Orders: Orders Complete Blood Count Auto Diff Today Z00.00 - Encounter for general adult medi isabel examination without abnormal findings Liver Panel Today Z00.00 - Encounter for general adult medical examination without abnormal findings Vitamin B12 and Folate Today Z00.00 - Encounter for general adult medical examination without abnormal findings Vitamin D 25-OH Total Today Z00.00 - Encounter for general adult medical examination without abnormal findings TSH reflex Free T4 Today Z00.00 - Encounter for general adult medical examination without abnormal findings Comprehensive [place]. Panel Fast Today Z00.00 - Encounter for general adult medical examination without abnormal findings Hemoglobin A1c Today Z00.00 - Encounter for general adult medical examination without abnormal findings Lipid Panel Today Z00.00 - Encounter for general adult medical examination without abnormal findings Magnesium Today Z00.00 - Encounter for general adult medical examination without abnormal findings Vitamin B1 Today Z00.00 - Encounter for general adult medical examination without abnormal findings C Reactive Protein Today Z00.00 - Encounter for general adult medical examination without abnormal findings Patient Instructions: Patient Instructions - Perform fasting lipid panel as soon as possible. - Continue taking pravastatin and magnesium as prescribed. - Use sumatriptan for severe migraine episodes only. - Maintain dietary precautions for Crohn?s disease. - Schedule follow-up in six months. - Call if any new symptoms or concerns arise. Scribe Plan - Not visible on output: History of Present Illness The patient is a 64-year-old female presenting for a six-month follow-up. She has a history of hypercholesterolemia, for which she takes pravastatin 40 mg daily at night and Coenzyme Q10. Her cholesterol level was last recorded as slightly elevated at 207, with LDL at 132, and these have been somewhat consiste nt over time. She also has a history of chronic migraines managed by magnesium supplementation and sumatriptan for acute episodes; she reports seeing a neurologist for these issues after her previous neurologist retired. The patient previously experienced left-sided weakness, which prompted neurologic evaluation, revealing a meningioma deemed non-concerning by her neurologist. She manages her Crohn?s disease through dietary modifications and reports being problem-free. Her past episodes of plantar fasciitis have resolved. Additionally, she has macular degeneration in her left eye, receiving regular injections to manage the condition, impacting her depth perception. She expresses difficulty driving at night due to her vision issues. Social History - Lives with her . 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 - Independently manages daily activities such as cooking, cleaning, and grocery shopping. - Avoids driving at night due to vision issues. Review of Systems - Ophthalmologic: Reports macular degeneration; complains of difficulty with depth perception. - Gastrointestinal: Denies recent abdominal pain, diarrhea, or blood in stools. - Musculoskeletal: Denies current heel pain. - Neurologic: Denies current weakness or falls. Physical Exam Appearance: Alert. Oriented X3. No acute distress. Head: Normal external exam. Normocephalic. Atraumatic. Eyes: Pupils are equal, round, and reactive to light. Extraocular movements intact. Conjunctiva and sclera normal. Eyelids normal. Macular degeneration noted. Patient receives eye injections in the left eye. Ears: External auditory canal normal. Tympanic membranes normal. Throat: Pharynx normal. Uvula midline. Moist mucous membranes. Neck: Normal inspection. Neck supple. Full range of motion. No adenopathy. Thyroid Normal. No meningeal signs. No neck mass noted. Cardiovascular: Normal heart rate and rhythm. Heart sound normal. No murmurs noted. Pulses normal throughout. Respiratory: No respiratory distress. Painless inspiration. Breath sounds normal. No wheezes/rales/rhonchi noted. Chest nontender. No accessory muscle usage noted or decreased air movement noted. Abdomen: Soft and nontender. Bowel sounds normal in all 4 quadrants. No distention noted. No organomegaly noted. No visible injury noted. Back: No costovertebral angle tenderness. Full range of motion noted. Skin: Skin warm and dry. Normal skin color. Normal skin turgor. No rashes/lesions/lacerations noted. Extremities: No lower extremity edema. Extremities exhibit normal range of motion. Extremities nontender. Neuro: Oriented X 3. No motor deficit. No sensory deficit. Reflexes normal. History of left-sided weakness and meningioma noted, but currently normal. Results - Labs: Cholesterol last known to be slightly high at 207, with LDL at 132. - Diagnostics: Colonoscopy last performed on 05/24/2020. Plan - Recheck fasting lipid panel to monitor hypercholesterolemia. - Continue management of migraines with magnesium and sumatriptan as needed. - Maintain dietary management for Crohn?s disease and observe symptomology. - No current need for follow-up on meningioma, per neurologist's advice. - Follow up on blood work to monitor cholesterol and other routine labs. - Encourage ongoing monitoring of macular degeneration with polisher eyeglass frames. Patient was informed and verbally consented to the use of an ambient scribe for clinic note documentation during this visit. Discussion Notes I discussed with the patient the need for monitoring her cholesterol levels and maintaining her current medication regimen. We reviewed her migraine management plan and dietary modifications for Crohn?s disease, with no need for new medications. I reassured her about the non-concerning nature of her meningioma. We agreed on the importance of following up on her routine blood work and keeping appointments with her polisher eyeglass frames for macular degeneration management. The patient will follow up in six months. Patient Instructions - Perform fasting lipid panel as soon as possible. - Continue taking pravastatin and magnesium as prescribed. - Use sumatriptan for severe migraine episodes only. - Maintain dietary precautions for Crohn?s disease. - Schedule follow-up in six months. - Call if any new symptoms or concerns arise.
--- OUTSIDE RECORDS SUMMARY | 2024-09-01 09:08 | XMS_ITS ---
Author Organization Reynold George DO FACP Address [address] [place], [place] [id number] Care Team Providers Care Pest Control Worker Helper Name Role Phone Reynold George Primary Care Provider REASON FOR VISIT 6 month f/u SOCIAL HISTORY Sex Assigned At : Social History Observation Description Sex Assigned At Female Encounters Encounter Location Date Provider Diagnosis Reynold George DO, FACP [address] [place] [phone] 09/01/2024 Reynold George PLAN OF TREATMENT No Information
--- OUTSIDE RECORDS SUMMARY | 2024-09-01 09:08 | XMS_ITS ---
Author Organization Reynold George DO [facility] Address [address] [place], [place] [id number] Care Team Providers Care Furnace Combination Analyst Name Role Phone Reynold George Primary Care Provider REASON FOR REFERRAL Reason Large breasts Diagnosis 1 Large breasts (N62) Referral Organization Reynold Raza O, [facility] Referring Provider First Name Reynold Referring Provider Last Name Doris Referring Provider Speciality Internal M edicine Referred Provider Brandon Giraldo Referred Provider Specialty Plastic and Reconstructive Surgery General Notes Page,Kelley 4 01:03:49 PM EST > Referral faxed prior to scheduling. Referral Priority Routine REASON FOR VISIT Message SOCIAL HISTORY Sex Assigned At : Social History Observation Description Sex Assigned At Female Encounters Encounter Location Date Provider Diagnosis Reynold George DO, [facility] [address] [place], [place] [phone] 06/22/2024 Reynold George Large breasts N62 ASSESSMENTS Encounter Date Diagnosis Assessment Notes Treatment Notes Treatment Clinical Notes 06/22/2024 Large breasts (ICD-10 - N62) PLAN OF TREATMENT Referrals Referral Date Details Brandon Lyn Consultation Request Notes Referral Date Referring Provider Referred Provider Not topher 06/22/2024 Reynold George [place] Large breast s
--- OUTSIDE RECORDS SUMMARY | 2024-09-01 09:08 | XMS_ITS ---
Author Organization Reynold George DO, FACP Address [address] [facility] [place] [id number] Care Team Providers Care Water Pumper Name Role Phone Reynold George Primary Care Provider ALLERGIES Allergen (clinical drug ingredient) Drug/Non Drug Allergy documented on EMR Reaction Allergy Type Onset Date Status amoxicillin Amoxicillin rash Drug Allergy Act nilda REASON FOR VISIT 6 month f/u, Follow up Migraine, unspecified, not intractable, without status migrainosus, meningioma, hypercholesterolemia MEDICATIONS Medication SIG (Take, Route, Frequency, Duration) Notes Start Date End Date Status Pravastatin Sodium 40 MG 1 tablet Orally Once a day Active SUMAtriptan Succinate 25 MG 1 tablet at least 2 hours between doses as needed Orally Twice a day Active Magnesium 400 MG 1 capsule with food Orally Once a day Active Coenzyme Q-10 100 MG 1 capsule with a me al Orally Once a day 05/12/2019 Active PreserVision AREDS 2 - 1 capsule Orally Once a day Active SOCIAL HISTORY Tobacco Use: Social History Observation Description Date Details (start date - stop date) Never Smoker NA - NA Sex Assigned At : Social History Observation Description Sex Assigned At Female Tobacco Use/Smoking Question Answer Notes Patient is a nonsmoker Additional Findings: Tobacco Non-User Cu rrent non-smoker, currently using no form of tobacco Alcohol Screen Question Answer Notes Did you have a drink contain ing alcohol in the past year? Yes How often did you have a dri nk containing alcohol in the past year? Monthly or less (1 point) How many drinks did you have on a typical day when you were drinking in the past year? 1 or 2 drinks (0 point) How often did you have 6 or more drinks on one occasion in the past year? Never (0 point) Points 1 Interpretation Negative VITAL SIGNS BMI 23.08 kg/m2 02/25/2024 Blood pressure systolic 96 mm Hg 02/25/20 24 Blood pressure diastolic 62 mm Hg 024 Height 66.00 in 02/25/2024 Weight 143 lbs 02/25/2024 Encounters Encounter Location Date Provider Diagnosis Reynold George DO, [facility] [address] [place], [place] [phone] 02/25/2024 Reynold George Meningioma D32.9 ; Migraine, unspecified, not intractable, without status migrainosus G43.909 and Hypercholesterolemia E78.00 ASSESSMENTS Encounter Date Diagnosis Assessment Notes Treatment Notes Treatment Clinical Notes 02/25/2024 Meningioma (ICD-10 - D32.9) Stable 02/25/2024 Migraine, unspecifie d, not intractable, without status migrainosus (ICD-10 - G43.909) 02/25/2024 Hypercholesterolemia (ICD-10 - E78.00) PLAN OF TREATMENT Medication Medication Name Sig Start Date Stop Date Notes Pravastatin Sodium 40 MG 1 tablet Orally Once a day SUMAtriptan Succinate 25 MG 1 tablet at least 2 hours between doses as needed Orally Twice a day Magnesium 400 MG 1 capsule with food Orally Once a day Coenzyme Q-10 100 MG 1 capsule with a me al Orally Once a day 05/12/2019 PreserVision AREDS 2 - 1 capsule Orally Once a day Treatment Notes Assessment Notes Meningioma Stable Next Appt Details Follow Up: 6 Months, Reason: follow up visit Progress Notes * Examination Category Sub-Category Detail Notes General Examination GENERAL APPEARANCE: in no ac bunny distress, well developed, well nourished HEAD: normocephalic, atrau matic HEART: no murmurs, regular rate and rhythm, S1, S2 normal LUNGS: clear to auscultatio n bilaterally ABDOMEN: normal, bowel sounds present, soft, nontender, nondistended SKIN: warm and dry EXTREMITIES: no edema PSYCH: alert, oriented, cog nitive function intact
--- OUTSIDE RECORDS SUMMARY | 2024-09-01 09:08 | XMS_ITS | Patient Health Record ---
Author Organization Reynold George DO, FACP Address [address] [facility] [place] [phone] Care Team Providers Care Thread Tool Grinder Set Up Operator Name Role Phone Reynold George Primary Care Provider [phone] ALLERGIES Allergen (clinical drug ingredient) Drug/Non Drug Allergy documented on EMR Reaction Allergy Type Onset Date Status amoxicillin Amoxicillin rash Drug Allergy Act nilda RESULTS Component Value Reference Range Notes MR head/brain wo/w con Reviewed date:09/29/2023 12:56:27 PM Interpretation:Stable Performing Lab: Notes/Report: [address] [address] Magnetic Resonance Report Signed Patient: Clive Mirza MR#: [id number] 0928 : 1960 Acct:[id number] Age/Sex: 63 / F ADM Date: 09/23/23 Loc: HO.MRI Attending Dr: Reynold George DO Ordering Physician: Reynold George DO Date of Service: 09/23/23 Procedure(s): MR head/brain wo/w con Accession Number(s): [id number] cc: Reynold George DO EXAMINATION: MR BRAIN WITHOUT AND WITH CONTRAST CLINICAL INFORMATION: Meningioma. Follow-up. COMPARISON: Brain MRI 05/04/2021. TECHNIQUE: Multiplanar MR imaging of the brain was performed without and with contrast. A total of 6 mL Gadavist was utilized for this examination. FINDINGS: Postcontrast images reveal an enhancing dome-shaped dural based mass over the right frontal convexity that measures up to 1.7 cm in maximal transaxial dimension which represents no substantial change when compared to prior brain MRI from 05/04/2021. There are no abnormal signal changes within the adjoining right superior frontal gyrus. No abnormal mass or enhancement visualized elsewhere within the intracranial compartment. There is no intracranial mass effect or midline shift. Lateral and third ventricles are normal. No hydrocephalus. Midline structures including the cervicomedullary junction are normal. No acute bone marrow signal changes. There are a few scattered nonspecific foci of T2 FLAIR signal hyperintensity within the periventricular white matter. No acute territorial infarct. No pathological magnetic susceptibility artifact. Intracranial vascular flow voids are maintained. There is no mastoid middle ear effusion. Trivial mucosal thickening within the ethmoid air cells. Globes and orbits are symmetric. MR/MR head/brain wo/w con IMPRESSION: Stable examination. The size of a right frontal convexity meningioma has not substantial changed when compared to prior imaging from 05/04/2021. No abnormal signal changes within the adjoining right superior frontal gyrus. Dictated By: Reynold Malik MD Signed By: <Electronically signed by Reynold Malik MD in OV> 09/29/23 1208 DD/ 1710 TD/TT: Door Patcher: RH Complete Blood Count Auto Di ff Reviewed date:11/08/2023 08:12:53 PM Interpretation:Abnormal Performing Lab:[facility], [address] [place] [phone] Notes/Report: White Blood Count 4.0 4.8-10.8 X10*3/uL Red Blood Count 4.61 4.20-5.50 X10*6/uL Hemoglobin 13.9 12.0-16.0 g/dl Hematocrit 41.4 37.0-47.0 % Mean Corpuscular Volume 89.8 80.0-98.0 fL Mean Corpuscular Hemoglobin 30.2 27.0-33.0 pg Mean Corpuscular HGB Conc 33.6 31.0-35.0 g/dl Red Cell Distribution Width 13.1 11.0-16.0 % Platelet Count 211 160-400 X10*3/uL Mean Platelet Volume 11.7 9.4-12.3 fL Neutrophils Percent Auto 46.4 45-73 % Imm Gran Pct Auto 0.2 0.0-0.4 % Lymphocytes Percent Auto 39.7 20-40 % Monocytes Percent Auto 9.5 2-11 % Eosinophils Percent Auto 2.7 0-4 % Basophils Percent Auto 1.5 0-2 % NRBC Pct Auto 0.0 0.0-0.2 /100WBC Neutrophils Absolute Auto 1.9 2.0-8.3 x10*3/u L Imm Gran Abs Auto 0.01 0.00-0.03 X10*3/uL Lymphocytes Absolute Auto 1.6 1.2-4.9 X10*3/u L Monocytes Absolute Auto 0.4 0.1-1.2 X10*3/uL Eosinophils Absolute Auto 0.1 0.0-0.4 X10*3/u L Basophils Absolute Auto 0.1 0.0-0.2 X10*3/uL NRBC Abs Auto 0.000 0.0-0.012 X10*3/uL Comprehensive [place]. Panel Fa st Reviewed date:11/08/2023 08:12:04 PM Interpretation:Normal Performing Lab:[address] [address] Notes/Report: Sodium 141 135-145 mmol/L Potassium 4.3 3.3-5.1 mmol/L Chloride 108 96-108 mmol/L Carbon Dioxide 26 22-29 mmol/L Anion Gap 11 12-20 Blood Urea Nitrogen 16 9-16 mg/dL Creatinine 0.78 0.5-1.4 mg/dL Estimated Glomerular Filt Rate > 60 NOTE: For -Sudanese individuals, multiply the result by 1.210. Chronic Kidney Disease: Estimated GFR < 60 mL/min/1.73m2 Severe Kidney Disease: Estimated GFR < 15 mL/min/1.73m2 Glucose Fasting 89 60-99 mg/dL Calcium 9.5 8.4-10.2 mg/dL Bilirubin Total 0.5 0.0-1.0 mg/dL Aspartate Amino Transferase 17 5-31 U/L Alanine Aminotransferase 13 0-31 U/L Total Protein 7.1 6.5-8.0 g/dL Albumin Level 4.1 3.5-5.0 g/dL Alkaline Phosphatase 95 39-117 U/L Lipid Panel Reviewed date:11/08/2023 08:12:38 PM Interpretation:Abnormal Performing Lab:[address] [place] [address] Notes/Report: Triglycerides 109 <150 mg/dL Desirable Triglyceride: less than 150 mg/dL Borderline High Triglyceride 150-199 mg/dL High Triglyceride: 200-499 mg/dL Very High Triglyceride: greater than or equal to 5OO mg/dL Cholesterol 207 <200 mg/dL Desirable Cholesterol: less than 200 mg/dL Borderline High Cholesterol: 200-239 mg/dL High Cholesterol: greater than 239 mg/dL LDL Cholesterol Calculated 132 <100 mg/dL Desirable LDL: less than 100 mg/dL Near Optimal/Above Optimal LDL: 110-129 mg/dL Borderline High LDL: 130-159 mg/dL High LDL: 160-189 mg/dL Very High LDL: greater than or equal to 190 mg/dL HDL Cholesterol 54 >40 mg/dL Desirable HDL: greater than 40 mg/dL Note: This HDL assay may give artificially low results in patients with liver disease. Vitamin B12 and Folate Reviewed date:11/08/2023 08:12:05 PM Interpretation:Normal Performing Lab:[facility], [address] [place] [phone] Notes/Report: Vitamin B12 244 200-900 pg/mL NORMAL 200-900 PG/ML INDETERMINATE 160-199 PG/ML DEFICIENT < 160 PG/ML Folate 5.3 > or = 4.0 ng/mL Reference Values: > or = 4.0 ng/mL < 4.0 ng/mL suggests folate deficiency Methotrexate, aminopterin and folinic acid (leucovorin) are chemotherapeutic agents whose molecular structures are similar to folate; therefore, the Ladle Repairer folate assay cannot be used for patients using these drugs. Vitamin D 25-OH Total Reviewed date:11/08/2023 08:12:04 PM Interpretation:Normal Performing Lab:[facility], [address] [place] [phone] Notes/Report: Vitamin D 25-OH Total 42.3 >30 ng/mL Health Based Reference Values* < 20 ng/mL Deficient 20-30 ng/mL Insufficient > 30 ng/mL Sufficient *Liv SANDOVAL. N Engl J Med. 2007;357:266-280 Care must be taken in interpreting Vitamin D results from different laboratories and methodologies. Published data demonstrated that results from patients undergoing hemodialysis may show a negative bias when tested with various automated 25-OH vitamin D assays when compared to LC-MS/MS. When testing samples from patients whose predominant form of Vitamin D is Vitamin D2, such as patients receiving Vitamin D2 supplementation, results that are subtherapeutic should be confirmed with another method such as LC-MS/MS. Thyroid Stimulating Hormone Reviewed date:11/08/2023 08:12:05 PM Interpretation:Normal Performing Lab:[facility], [address] [place] [phone] Notes/Report: Thyroid Stimulating Hormone 2.40 0.32-4.0 uIU/ mL TSH 3rd Generation ([facility]) MM tomosynthesis screening B I Reviewed date:03/16/2024 11:31:31 AM Interpretation:Negative Performing Lab: Notes/Report: [address] [place] [address] Mammography Report Signed Patient: Clive Mirza MR#: [id number] 0928 : 1960 Acct:[id number] Age/Sex: 63 / F ADM Date: 02/16/24 Loc: HO.MAMMO Attending Dr: Reynold George DO Ordering Physician: Reynold George DO Results: 1Negat nilda Date of Service: 02/16/24 Follow Up: 1 Year From Orig ina Mammogram Procedure(s): MM tomosynthesis screening BI Accession Number(s): [id number] cc: Reynold George DO EXAMINATION: MM SCREENING DIGITAL BREAST TOMOSYNTHESIS, BILATERAL CLINICAL INFORMATION: Screening. Asymptomatic. COMPARISON: Mammography: This study is compared with prior exams dating back to 2016. TECHNIQUE: Digital breast tomosynthesis is performed in both the craniocaudal and mediolateral oblique views along with computer-aided detection (CAD). Synthesized 2D images are generated from the tomosynthesis. FINDINGS: There are scattered areas of fibroglandular density (ACR BI-RADS breast composition Category b). There are no significant masses, abnormal calcifications, or other abnormalities. MM/MM tomosynthesis screening BI IMPRESSION: No mammographic evidence of malignancy. ASSESSMENT: BI-RADS BI-RADS 1 - Negative RECOMMENDATION: Routine annual mammography screening. 1 year F/U This examination should not preclude the clinical evaluation of a suspicious palpable abnormality. This patient's information was entered into a reminder system with a target due date for their next mammogram. Electronically signed by: Gladys Jalloh MD 03/16/2024 06:40 AM EDT RP Dictated By: Gladys Jalloh MD Signed By: <Electronically signed by Gladys Jalloh MD in OV> 03/16/24 0640 DD/ 0800 TD/TT: 02/16/24 0809 Door Patcher: REASON FOR REFERRAL Reason Large breasts Diagnosis 1 Large breasts (N62) Referral Organization Reynold Mckeon FACP Referring Provider First Name Reynold Referring Provider Last Name Doris Referring Provider Speciality Internal M edicine Referred Provider Brandon Giraldo Referred Provider Specialty Plastic and Reconstructive Surgery General Notes Kelley Chairez 4 01:03:49 PM EST > Referral faxed prior to scheduling. Referral Priority Routine MEDICATIONS Medication SIG (Take, Route, Frequency, Duration) [...] 1 capsule Orally Once a day Active IMMUNIZATIONS Vaccine Route Administration Date Status Comme nts TDaP IM Intramuscular 08/25/2015 Administered Influenza Quad IM Intramuscular 04/17/2021 Administered COVID-19 Pfizer BioNTech Unknown 08/28/2020 Administere d COVID-19 Pfizer BioNTech Unknown 09/18/2020 Administere d COVID-19 Pfizer BioNTech Unknown 06/20/2021 Administere d Influenza Unknown 06/16/2015 Refused Influenza Unknown 06/10/2017 Refused SOCIAL HISTORY Tobacco Use: Social History Observation [...] Never (0 point) Points 1 Interpretation Negative PROBLEMS Problem Type ICD Code Onset Dates Problem Status W/U Status Risk SNOMED Code Notes Problem Migraine, unspecifie d, not intractable, without status migrainosus (G43.909) Active confirmed Migrai ne without aura, not refractory (disorder) (447684217) Problem Bilateral impacted cerumen (H61.23) Active confirmed 60077310 Problem Crohns disease of sm all intestine without complication (K50.00) Active confirmed 81965999 Problem Hypercholesterolemia (E78.00) Active confirmed 67612407 Problem Strain of neck muscl e, initial encounter (S16.1XXA) Active confirmed 499082687 Problem Meningioma (D32.9) Active confirmed 126 068973 Problem Blurry vision, left eye (H53.8) Active confirmed 656623778 Problem Weakness of left shirley e of body (R53.1) Active confirmed 979689280 Problem Urinary, incontinenc e, stress female (N39.3) Active confirmed 04028747 VITAL SIGNS Blood pressure diastolic 62 mm Hg 02/25/2024 Height 66.00 in 02/25/2024 Blood pressure systolic 96 mm Hg 02/25/2024 Weight 143 lbs 02/25/2024 BMI 23.08 kg/m2 02/25/2024 Encounters Encounter Location Date Provider Diagnosis Reynold George DO, [facility] [address] [place], [place] [phone] 02/25/2024 Reynold George Meningioma D32.9 ; Migraine, unspecified, not intractable, without status migrainosus G43.909 and Hypercholesterolemia E78.00 Reynold George DO, [facility] [address] [place], [place] [phone] 09/01/2024 Reynold George DO, [facility] [address] [place], [place] [phone] 09/03/2023 Reynold George Meningioma D32.9 Reynold George DO, [facility] [address] [place], [place] [phone] 06/22/2024 Reynold George Large breasts N62 ASSESSMENTS Encounter Date Diagnosis Assessment Notes Treatment Notes Treatment Clinical Notes 02/25/2024 Migraine, unspecifie d, not intractable, without status migrainosus (ICD-10 - G43.909) 02/25/2024 Meningioma (ICD-10 - D32.9) Stable 09/03/2023 Meningioma (ICD-10 - D32.9) 06/22/2024 Large breasts (ICD-1 0 - N62) 02/25/2024 Hypercholesterolemia (ICD-10 - E78.00) PLAN OF TREATMENT No Information Insurance Providers Payer Name Payer Address Payer Phone Subscriber Number Group Number Insured Name Patient Relationship to Insured Coverage Start Date Coverage End Date MEDICARE [address] [place] [phone] [id number] Clive Mirza Self - [facility] [address] [place] [id number] [phone] [id number] Clive Mirza Self - patient is the insured MEDICAL (GENERAL) HISTORY Medical History History ICD Code hypercholesterolemia Crohn's Disease urinary tract infection Plantar fasciitis of right foot M72.2 Blurry vision, left eye H53.8 Weakness of left side of body R53.1 macular degeneration meningioma Migraine, unspecified, not intractable, without status migrainosus G43.909 Surgical History Surgery Date(Month/Year) tonsillectomy tubal ligation partial intestinal resection of the term inal ileum
[2024-09-01 09:10] VITALS: BP 104/60; PULSE 73; TEMP 36.2; O2SAT 98; BMI 24.7
== END 2024-09-01 09:23 | disposition home or self-care (01) ==
LOC: HO.HMCSH 08:58
PROVIDERS: PCP Internal Medicine; Visit Provider Physician Assistant Medical
DX: Z09 Encounter for follow-up examination after completed treatment for conditions other than malignant neoplasm (principal); G43.909 Migraine, unspecified, not intractable, without status migrainosus; D32.9 Benign neoplasm of meninges, unspecified; H35.30 Unspecified macular degeneration; M72.2 Plantar fascial fibromatosis; K50.90 Crohn's disease, unspecified, without complications; E78.00 Pure hypercholesterolemia, unspecified

== ENCOUNTER → 2024-09-01 08:58 | Outpatient (BNVA) | payer MEDICARE, OTHER, SELFPAY | PROVIDERS: PCP Internal Medicine; Visit Provider Physician Assistant Medical | DX: Z09 Encounter for follow-up examination after completed treatment for conditions other than malignant neoplasm (principal); G43.909 Migraine, unspecified, not intractable, without status migrainosus; D32.9 Benign neoplasm of meninges, unspecified; H35.30 Unspecified macular degeneration; M72.2 Plantar fascial fibromatosis; K50.90 Crohn's disease, unspecified, without complications; E78.00 Pure hypercholesterolemia, unspecified | CPT/HCPCS: 99212 ==

== ENCOUNTER 2024-09-06 11:44 | Outpatient (REF) | payer MEDICARE, OTHER, SELFPAY ==
--- OUTSIDE RECORDS SUMMARY | 2024-09-06 13:35 | XMS_ITS ---
Author Organization Reynold George DO [facility] Address [address] [place], [place] [phone] Care Team Providers Care Fish And Wildlife Biologist Name Role Phone Reynold George Primary Care Provider REASON FOR REFERRAL Reason Large breasts Diagnosis 1 Large breasts (N62) Referral Organization Reynold Raza O, [facility] Referring Provider First Name Reynold Referring Provider [...] Location Date Provider Diagnosis Reyn[facility] DO, [facility] [address] [place], [place] [phone] 06/22/2024 Reynold George Large breasts N62 ASSESSMENTS Encounter Date Diagnosis Assessment Notes Treatment Notes Treatment Clinical Notes 06/22/2024 Large breasts (ICD-10 - N62) PLAN OF TREATMENT Referrals Referral Date Details Brandon Lyn Consultation Request Notes Referral Date Referring Provider Referred Provider Triny obando 06/22/2024 Reynold George [place] Large breast s
--- OUTSIDE RECORDS SUMMARY | 2024-09-06 13:35 | XMS_ITS ---
Author Organization Reynold George DO, FACP Address [address] [facility] [place] [phone] Care Team Providers Care Collar Separator Name Role Phone Reynold George Primary Care [...] Location Date Provider Diagnosis Reynold George DO, [facility] [address] [place], [place] [phone] 02/25/2024 Reynold George Meningioma D32.9 ; Migraine, [...]
--- OUTSIDE RECORDS SUMMARY | 2024-09-06 13:35 | XMS_ITS | Patient Health Record ---
Author Organization Reynold George DO, FACP Address [address] [facility] [place] [phone] Care Team Providers Care Glass Beveler Name Role Phone Reynold George Primary Care Provider ALLERGIES Allergen (clinical drug ingredient) Drug/Non Drug Allergy documented on EMR Reaction Allergy Type Onset Date Status amoxicillin Amoxicillin rash Drug Allergy Act nilda RESULTS Component Value Reference Range Notes MR head/brain wo/w con Reviewed date:09/29/2023 12:56:27 PM Interpretation:Stable Performing Lab: Notes/Report: [address] [address] Magnetic Resonance Report Signed Patient: Clive Mirza MR#: [id number] 0928 : 1960 Acct:[id number] Age/Sex: 63 / F ADM Date: 09/23/23 Loc: HO.MRI Attending Dr: Reynold George DO Ordering Physician: Reynold George DO Date of Service: 09/23/23 Procedure(s): MR head/brain wo/w con Accession Number(s): [id number] cc: Reynold George DO EXAMINATION: MR BRAIN [...] in OV> 09/29/23 1208 DD/ 1710 TD/TT: Waterproofing Machine Operator: RH Complete Blood Count Auto Di ff Reviewed date:11/08/2023 08:12:53 PM Interpretation:Abnormal Performing Lab:[facility], [address] [place] [address] Notes/Report: White Blood Count 4.0 4.8-10.8 X10*3/uL [...] NRBC Abs Auto 0.000 0.0-0.012 X10*3/uL Comprehensive [place]. Panel Fa st Reviewed date:11/08/2023 08:12:04 PM Interpretation:Normal Performing Lab:[address] [address] Notes/Report: Sodium 141 135-145 mmol/L Potassium 4.3 3.3-5.1 mmol/L Chloride 108 96-108 mmol/L Carbon Dioxide 26 22-29 mmol/L Anion Gap 11 12-20 Blood Urea Nitrogen 16 9-16 mg/dL Creatinine 0.78 0.5-1.4 mg/dL Estimated Glomerular Filt Rate > 60 NOTE: For -Bahamian individuals, multiply the result by 1.210. Chronic [...] Panel Reviewed date:11/08/2023 08:12:38 PM Interpretation:Abnormal Performing Lab:[address] [place] [address] Notes/Report: Triglycerides 109 <150 mg/dL Desirable Triglyceride: [...] Folate Reviewed date:11/08/2023 08:12:05 PM Interpretation:Normal Performing Lab:[facility], [address] [place] [phone] Notes/Report: Vitamin B12 244 200-900 pg/mL NORMAL 200-900 PG/ML INDETERMINATE 160-199 PG/ML DEFICIENT < 160 PG/ML Folate 5.3 > or = 4.0 ng/mL Reference Values: > or = 4.0 ng/mL < 4.0 ng/mL suggests folate deficiency Methotrexate, aminopterin and folinic acid (leucovorin) are chemotherapeutic agents whose molecular structures are similar to folate; therefore, the Heavy Line Technician folate assay cannot be used for patients using these drugs. Vitamin D 25-OH Total Reviewed date:11/08/2023 08:12:04 PM Interpretation:Normal Performing Lab:[facility], [address] [place] [address] Notes/Report: Vitamin D 25-OH Total 42.3 >30 [...] Hormone Reviewed date:11/08/2023 08:12:05 PM Interpretation:Normal Performing Lab:[facility], [address] [place] [phone] Notes/Report: Thyroid Stimulating Hormone 2.40 0.32-4.0 uIU/ mL TSH 3rd Generation ([facility]) MM tomosynthesis screening B I Reviewed date:03/16/2024 11:31:31 AM Interpretation:Negative Performing Lab: Notes/Report: [address] [place] [address] Mammography Report Signed Patient: Clive Mirza MR#: [id number] 0928 : 1960 Acct:[id number] Age/Sex: 63 / F ADM Date: 02/16/24 Loc: HO.MAMMO Attending Dr: Reynold George DO Ordering Physician: Reynold George DO Results: 1Negat nilda Date of Service: 02/16/24 Follow Up: 1 Year From Orig ina Mammogram Procedure(s): MM tomosynthesis screening BI Accession Number(s): [id number] cc: Reynold George DO EXAMINATION: MM SCREENING [...] 03/16/24 0640 DD/ 0800 TD/TT: 02/16/24 0809 Waterproofing Machine Operator: REASON FOR REFERRAL Reason Large breasts Diagnosis [...] Migrai ne without aura, not refractory (disorder) (558473273) Problem Bilateral impacted cerumen (H61.23) Active confirmed 32495562 Problem Crohns disease of sm all intestine without complication (K50.00) Active confirmed 27834277 Problem Hypercholesterolemia (E78.00) Active confirmed 82476518 Problem Strain of neck muscl e, initial encounter (S16.1XXA) Active confirmed 454337409 Problem Meningioma (D32.9) Active confirmed 126 349552 Problem Blurry vision, left eye (H53.8) Active confirmed 007644700 Problem Weakness of left shirley e of body (R53.1) Active confirmed 398430342 Problem Urinary, incontinenc e, stress female (N39.3) Active confirmed 85902147 VITAL SIGNS Blood pressure diastolic 62 mm Hg 02/25/2024 Height 66.00 in 02/25/2024 Blood pressure systolic 96 mm Hg 02/25/2024 Weight 143 lbs 02/25/2024 BMI 23.08 kg/m2 02/25/2024 Encounters Encounter Location Date Provider Diagnosis Reynold George DO, [facility] [address] [place], [place] [phone] 02/25/2024 Ryenold George Meningioma D32.9 ; Migraine, unspecified, not intractable, without status migrainosus G43.909 and Hypercholesterolemia E78.00 Reynold George DO, [facility] [address] [place], [place] [phone] 09/01/2024 Reynold George DO, [facility] [address] [place], [place] [phone] 06/22/2024 Reynold George Large breasts N62 ASSESSMENTS Encounter Date Diagnosis Assessment Notes Treatment Notes Treatment Clinical Notes 02/25/2024 Migraine, unspecifie d, not intractable, without status migrainosus (ICD-10 - G43.909) 02/25/2024 Meningioma (ICD-10 - D32.9) Stable 06/22/2024 Large breasts (ICD-1 0 - N62) 02/25/2024 Hypercholesterolemia (ICD-10 - E78.00) PLAN OF TREATMENT No Information Insurance Providers Payer Name Payer Address Payer Phone Subscriber Number Group Number Insured Name Patient Relationship to Insured Coverage Start Date Coverage End Date MEDICARE [address] [place] [phone] [id number] Clive Mirza Self - patient is the insured [employer] [address] [place] [id number] Clive Mirza Self - patient is the [...]
--- OUTSIDE RECORDS SUMMARY | 2024-09-06 13:35 | XMS_ITS ---
Author Organization Reynold George DO FACP Address [address] [place], [place] [phone] Care Team Providers Care Casino Floor Runner Name Role Phone Reynold George Primary Care Provider REASON FOR VISIT 6 month f/u SOCIAL HISTORY Sex Assigned At : Social History Observation Description Sex Assigned At Female Encounters Encounter Location Date Provider Diagnosis Reynold George DO, FACP [address] [place] [phone] 09/01/2024 Reynold George PLAN OF TREATMENT No Information
[2024-09-06 14:01] LABS: Appearance Urine Cloudy; Color Urine Orange; Leukocyte Esterase Urine Small (1+) (Negative); UMIC TRIGGER UACC YES; Urine Blood Negative (Negative); Urine Protein 100 (2+) mg/dL (Neg-Trace)
[2024-09-06 14:23] LABS: Bacteria Urine 1+ (None Seen); Hyaline Casts Urine 0-2 /LPF (0-2); Other Crystals Urine Present; RBC Urine 0-2 /HPF (0-2); Squamous Epithelial Cell Urine 0-2 /HPF (0-2); UACC Culture Trigger YES; WBC Clumps Urine Present
== END 2024-09-06 11:45 | disposition home or self-care (01) ==
LOC: HO.HMGCLDS 11:44
PROVIDERS: PCP Physician Assistant Medical; Visit Provider Physician Assistant Medical
DX: R30.0 Dysuria (principal)
CPT/HCPCS: 81001; 81003; 87086

== ENCOUNTER 2024-09-07 07:02 | Outpatient (REF) | payer MEDICARE, OTHER, SELFPAY ==
--- OUTSIDE RECORDS SUMMARY | 2024-09-07 07:04 | XMS_ITS ---
Author Organization Reynold George DO FACP Address [address] [place], [place] [phone] Care Team Providers Care Resin Filterer Name Role Phone Reynold George Primary Care Provider [phone] REASON FOR VISIT 6 month f/u SOCIAL HISTORY Sex Assigned At : Social History Observation Description Sex Assigned At Female Encounters Encounter Location Date Provider Diagnosis Reynold George DO, FACP [address] [place] [phone] 09/01/2024 Reynold George PLAN OF TREATMENT No Information
--- OUTSIDE RECORDS SUMMARY | 2024-09-07 07:05 | XMS_ITS ---
Author Organization Reynold George DO [facility] Address [address] [place], [place] [phone] Care Team Providers Care Youth Career Specialist Name Role Phone Reynold George Primary Care Provider REASON FOR REFERRAL Reason Large breasts Diagnosis 1 Large breasts (N62) Referral Organization Reynold Raza O, [facility] Referring Provider First Name Reynold Referring Provider [...] Location Date Provider Diagnosis Reynold George DO, [facility] [address] [place], [place] [phone] 06/22/2024 Reynold George Large breasts N62 ASSESSMENTS Encounter Date Diagnosis Assessment Notes Treatment Notes Treatment Clinical Notes 06/22/2024 Large breasts (ICD-10 - N62) PLAN OF TREATMENT Referrals Referral Date Details Brandon Lyn Consultation Request Notes Referral Date Referring Provider Referred Provider Triny obando 06/22/2024 Reynold George [place] Large breast s
[2024-09-07 10:05] LABS: MANUAL DIFF FLAG NO
[2024-09-07 10:10] LABS: Basophils Absolute Auto 0.1 X10*3/uL (0.0-0.2); Basophils Percent Auto 1.2 % (0-2); Eosinophils Absolute Auto 0.2 X10*3/uL (0.0-0.4); Eosinophils Percent Auto 4.1 % (0-4); Hematocrit 40.2 % (37.0-47.0); Hemoglobin 13.4 g/dl (12.0-16.0); Imm Gran Abs Auto 0.01 X10*3/uL (0.00-0.03); Imm Gran Pct Auto 0.2 % (0.0-0.4); Lymphocytes Absolute Auto 1.4 X10*3/uL (1.2-4.9); Lymphocytes Percent Auto 33.3 % (20-40); Mean Corpuscular HGB Conc 33.3 g/dl (31.0-35.0); Mean Corpuscular Hemoglobin 30.4 pg (27.0-33.0); Mean Corpuscular Volume 91.2 fL (80.0-98.0); Mean Platelet Volume 12.1 fL (9.4-12.3); Monocytes Absolute Auto 0.3 X10*3/uL (0.1-1.2); Monocytes Percent Auto 7.9 % (2-11); Neutrophils Absolute Auto 2.2 x10*3/uL (2.0-8.3); Neutrophils Percent Auto 53.3 % (45-73); Platelet Count 218 X10*3/uL (160-400); Red Blood Count 4.41 X10*6/uL (4.20-5.50); Red Cell Distribution Width 12.9 % (11.0-16.0); White Blood Count 4.2 X10*3/uL (4.8-10.8)
[2024-09-07 10:27] LABS: Estimated Average Glucose 100 mg/dL; Hemoglobin A1c % 5.1 % (<6.0); Total Hemoglobin (HGBA1C) 3484.7533 umol/L
[2024-09-07 10:32] LABS: Alanine Aminotransferase 15 U/L (0-31); Alkaline Phosphatase 113 U/L (39-117); Anion Gap 11 (12-20); Aspartate Amino Transferase 21 U/L (5-31); Bilirubin Direct 0.1 mg/dL (0.0-0.5); Bilirubin Total 0.4 mg/dL (0.0-1.0); Blood Urea Nitrogen 16 mg/dL (9-16); C Reactive Protein 0.26 mg/dL (< or = 0.50); Calcium 9.2 mg/dL (8.4-10.2); Carbon Dioxide 24 mmol/L (22-29); Chloride 110 mmol/L (96-108); Cholesterol 230 mg/dL (<200); Estimated Glomerular Filt Rate > 60; Glucose Fasting 91 mg/dL (60-99); HDL Cholesterol 60 mg/dL (>40); LDL Cholesterol Calculated 146 mg/dL (<100); Magnesium 2.1 mg/dL (1.6-2.6); Potassium 4.2 mmol/L (3.3-5.1); Sodium 141 mmol/L (135-145); Total Protein 7.3 g/dL (6.5-8.0); Triglycerides 122 mg/dL (<150)
[2024-09-07 10:52] LABS: Folate 6.8 ng/mL (> or = 4.0); Vitamin B12 240 pg/mL (200-900)
[2024-09-07 10:56] LABS: TSH reflex Free T4 2.67 uIU/mL (0.32-4.0); Vitamin D 25-OH Total 32.9 ng/mL (>30)
[2024-09-13 14:43] LABS: Vitamin B1 11 nmol/L (8-30)
== END 2024-09-07 07:03 | disposition home or self-care (01) ==
LOC: HO.HMGCLDS 07:02
PROVIDERS: PCP Physician Assistant Medical; Visit Provider Physician Assistant Medical
DX: Z00.00 Encounter for general adult medical examination without abnormal findings (principal); Z13.1 Encounter for screening for diabetes mellitus; Z13.29 Encounter for screening for other suspected endocrine disorder; Z13.220 Encounter for screening for lipoid disorders
CPT/HCPCS: 36415; 80053; 80061; 80076; 82248; 82306; 82607; 82746; 83036; 83735; 84425; 84443; 85025; 86140

== ENCOUNTER 2025-02-21 07:54 | Outpatient (REF) | payer MEDICARE, OTHER, SELFPAY | END 2025-02-21 07:55 | disposition home or self-care (01) | LOC: HO.MAMMO 07:54 | PROVIDERS: PCP Physician Assistant Medical; Visit Provider Internal Medicine | DX: Z12.31 Encounter for screening mammogram for malignant neoplasm of breast (principal) | CPT/HCPCS: 77063; 77067 ==

== ENCOUNTER → 2025-02-21 08:00 | Outpatient (BNV) | payer MEDICARE, OTHER, SELFPAY | PROVIDERS: PCP Physician Assistant Medical; Visit Provider Internal Medicine | DX: Z12.31 Encounter for screening mammogram for malignant neoplasm of breast (principal) | CPT/HCPCS: 77063; 77067 ==

== ENCOUNTER 2025-03-02 08:54 | Outpatient (AMB) | payer MEDICARE, OTHER, SELFPAY ==
[2025-03-02 08:54] VITALS: BP 126/74; PULSE 68; RESP 20; TEMP 36.3; O2SAT 99; BMI 24.2
--- NOTE | 2025-03-02 08:54 | MHC.PC.OV ---
Vital Signs 03/02/25 08:54 Height 5 ft 4.5 in Weight 143 lb 2 oz BMI 24.2 BP 126/74 Blood Pressure Location Rt femoral Position Sitting Respiration 20 Pulse 68 Pulse Source Pulse Oximeter Temp 97.3 F Temp Source Temporal Artery Scan Pulse Oximetry (%) 99 Oxygen Delivery Method Room Air Intake Visit Reasons: 6 month f/u Intake Note: no other issues [employer] Required: No Accompanied by: Self / Same As Patient Allergies amoxicillin Allergy (Unknown, Verified 03/02/25 11:53) hives, rash, rash, rash, rash Medication List - Last Reconciled 03/02/25 by Nadira Terry PA-C coenzyme Q10 (Co Q-10) 100 mg PO DAILY ezetimibe (Zetia) 10 mg PO DAILY magnesium citrate 100 mg PO DAILY mc-iqy-WM-vit Q-dpowga-vxswsxw 200 mcg-15 mcg- 5 mg-1 mg (PreserVision AREDS 2 Plus Multivit) caps PO sumatriptan succinate take 1 tab at onset of headache; if no relief may repeat 1 tab after at least 2 hrs; max = 4 tabs/24 hr PO Tobacco use date assessed: 03/02/25 Fall risk assessment: 1 Fall in past year Last assessed Fall Risk: 03/02/25 Dental Screening Dental Screen Date: 03/02/25 Did you have a dental visit in the last 12 months?: No Did you have a dental problem in the last 6 months where you did not have access to dental care?: No Was dental information given to patient?: Patient has dentist HPI 6 month f/u HPI Details The patient is a 64-year-old female presenting for a six-month follow-up visit. She reports experiencing migraine headaches for which she has been prescribed sumatriptan, although she prefers using ibuprofen and caffeine due to the sedative effects of sumatriptan. The migraines are reportedly managed better with this alternative approach, allowing her to remain functional. The patient has a history of meningioma, but she is not currently under neurology follow-up as it was deemed non-progressive. Patient reports this is what she was pulled by the neurologist when she followed up with them for it. She is only being followed by neurologist for her migraine headaches. She is receiving injections for macular degeneration, which is ongoing. Denies any acute changes. Plantar fasciitis is noted to be stable and not currently problematic. Denies any acute changes. The patient has hyperlipidemia and has experienced joint pain with statin use, leading to discontinuation. She is considering Zetia as an alternative treatment to manage her cholesterol levels. She reports episodes of dizziness, described as a sensation of impending blackout, occurring sporadically without a clear trigger. These episodes are not associated with vertigo or positional changes. The patient also reports palpitations, with sensations of her heart rate fluctuating between slow and fast. [facility] Medical History Near syncope Occlusion and stenosis of bilateral carotid arteries Palpitations Dizziness Dysuria History of mammogram (~02/16/24) Migraine headache Meningioma Macular degeneration Plantar fasciitis of right foot Blurry vision, left eye Weakness of left side of body Crohn's disease Mild hypercholesterolemia Surgical History History of colonoscopy (~05/24/20) History of excision of mass (05/15/23) History of urinary tract surgery History of excision of intestinal structure Family History Mother High blood pressure Macular degeneration Diabetes Arthritis Social History Housing: House Alcohol intake: current Alcohol intake frequency: holidays/special occasions only Patient Tobacco Use Status: Never used Tobacco service: No Current occupational status: retired Cognitive needs: No Hearing needs: No Vision needs: Yes (cheaters ) Questionnaire PHQ-9 Over the last 2 weeks, how often have you been bothered by any of the following problems? 1. Little interest or pleasure in doing things: not at all 2. Feeling down, depressed, or hopeless: not at all 3. Trouble falling or staying asleep, or sleeping too much: not at all 4. Feeling tired or having little energy: not at all 5. Poor appetite or overeating: not at all 6. Feeling bad about yourself - or that you are a failure or have let yourself or your family down: not at all 7. Trouble concentrating on things, such as reading the newspaper or watching television: not at all 8. Moving or speaking so slowly that other people could have noticed. Or the opposite - being so fidgety or restless that you have been moving around a lot more than usual: not at all 9. Thoughts that you would be better off or of hurting yourself in some way: not at all Total score: 0 Depression Screening Interpretation: Negative Depression Screening Done: Yes 07763 - PHQ-9 Billing: Yes Source: Developed by Drs. Reynold Taveras, Rahel Crabtree, Po Banegas and colleagues, with an educational camelia from [employer]. Thrive Questionnaire Date Thrive assessed: 03/02/25 I am a: Patient What is your living situation today?: I have a steady place to live Within the past 12 months, did the food you bought not last and you didn't have the money to get more?: Never true Within the past 12 months, did you worry whether your food would run out before you got money to buy more?: Never true Do you have trouble paying for medicines?: No Do you have trouble getting transportation to medical appointments?: No Do you have trouble paying your heating and electricity bill?: No Do you have trouble taking care of your child, family member or friend?: No Do you have trouble with day-to-day activities such as bathing, preparing meals, shopping, managing finances, etc.?: No Are you currently unemployed and looking for a job?: No Are you interested in more education?: No Please select the resources that you would like help with: None Currently or been in a relationship where the following occur: No concerns reported THRIVE Score: 0 AUDIT C Alcohol Use Questionnaire (AUDIT-C) 1. How often do you have a drink containing alcohol?: Monthly or less 2. How many drinks containing alcohol do you have on a typical day when you are drinking?: 1 or 2 3. How often do you have six or more drinks on one occasion?: Never Total Score: 1 Score Reviewed/Action Taken: No EMELY-7 AMB Questionnaire EMELY-7 Date EMELY - 7 assessed: 09/01/24 Feeling nervous, anxious, or on edge: 0 = Not at all Not being able to stop or control worryin = Not at all Worrying too much about different things: 0 = Not at all Trouble relaxin = Not at all Being so restless that it is hard to sit still: 0 = Not at all Becoming easily annoyed or irritable: 0 = Not at all Feeling afraid as if something awful might happen: 0 = Not at all Total EMELY-7 score (0-4 normal; 5-9 mild; 10-14 moderate; 15-21 severe): 0 Source: Developed by Drs. Reynold Taveras, Rahel Crabtree, Po Banegas and colleagues, with an educational camelia from [employer]. EMELY-7 Assessment Billing EMELY-7 Assessment Tool: EMELY-7 Assessment 42078 Review of Systems Const Details: - Neurological: Reports migraine headaches managed with ibuprofen and caffeine. Denies vertigo. - Cardiovascular: Reports palpitations with fluctuating heart rate. Denies chest pain. - General: Reports dizziness with a sensation of impending blackout. Denies positional dizziness. All systems reviewed & are unremarkable except as noted in HPI and below Physical exam (Primary Care) Vital Signs: Last Vital Signs Temp 97.3 F 03/02/25 08:54 Pulse 68 03/02/25 08:54 Resp 20 03/02/25 08:54 BP 126/74 03/02/25 08:54 Pulse Ox 99 03/02/25 08:54 Oxygen Delivery Method Room Air 03/02/25 08:54 Care Plan Goal for BP management: <140/90 at Goal BMI result Body Mass Index 24.2 Tobacco/Smoking Status: Tobacco use Status Tobacco use date assessed 03/02/25 03/02/25 09:20 Patient Tobacco Use Status Never used Tobacco 03/02/25 09:19 PHQ-9: PHQ-9 Score PHQ-9: Total score 0 03/02/25 08:59 Depression Screening Interpretation: Negative Thrive Assessment: Date of Thrive Assessment Date Thrive assessed 03/02/25 03/02/25 08:59 Currently or been in a relationship where the following occur: No concerns reported Const Other: Appearance: Alert. Oriented X3. No acute distress. Head: Normal external exam. Normocephalic. Atraumatic. Eyes: Pupils are equal, round, and reactive to light. Extraocular movements intact. Conjunctiva and sclera normal. Eyelids normal. Ears: External auditory canal normal. Tympanic membranes normal. Throat: Pharynx normal. Uvula midline. Moist mucous membranes. Neck: Normal inspection. Neck supple. Full range of motion. No adenopathy. Thyroid Normal. No meningeal signs. No neck mass noted. Cardiovascular: Normal heart rate and rhythm. Heart sound normal. No murmurs noted. Pulses normal throughout. Reports sensations of heart speeding up and slowing down. Respiratory: No respiratory distress. Painless inspiration. Breath sounds normal. No wheezes/rales/rhonchi noted. Chest nontender. No accessory muscle usage noted or decreased air movement noted. Abdomen: Soft and nontender. No distention noted. No organomegaly noted. No visible injury noted. Back: Full range of motion noted. Skin: Skin warm and dry. Normal skin color. Normal skin turgor. No rashes/lesions/lacerations noted. Extremities: No lower extremity edema. Extremities exhibit normal range of motion. Neuro: Oriented X 3. No motor deficit. No sensory deficit. Reflexes normal. Coding Level of Care Code Est Pt Level 4 (57943) Complex EM visit Add On G2211 Diagnoses Migraine headache G43.909 Meningioma D32.9 Macular degeneration H35.30 Plantar fasciitis of right foot M72.2 Mild hypercholesterolemia E78.00 Dizziness R42 Palpitations R00.2 Additional Codes PHQ-9 - 90715 - PHQ-9 Billing: Yes ([id number]) EMELY-7 Assessment Billing - EMELY-7 Assessment Tool: EMELY-7 Assessment 64424 ([id number]) Assessment & Plan Assessment & Plan (1) Migraine headache: Code(s): G43.909 - Migraine, unspecified, not intractable, without status migrainosus Category: Medical Plan: The patient is advised to continue managing migraines with ibuprofen and caffeine as needed, given the sedative effects of sumatriptan. Patient to continue following up with neurologist. Condition is chronic and stable continue to monitor. (2) Meningioma: Code(s): D32.9 - Benign neoplasm of meninges, unspecified Category: Medical Plan: No active management is required for the meningioma as it is deemed non-progressive. Condition is chronic and stable continue to monitor. (3) Macular degeneration: Code(s): H35.30 - Unspecified macular degeneration Category: Medical Plan: The patient is to continue receiving regular injections for macular degeneration. Condition is chronic and stable will continue to monitor. (4) Plantar fasciitis of right foot: Code(s): M72.2 - Plantar fascial fibromatosis Category: Medical Plan: Plantar fasciitis is stable and requires no current intervention. Condition is chronic and stable continue to monitor. (5) Mild hypercholesterolemia: Code(s): E78.00 - Pure hypercholesterolemia, unspecified Category: Medical Plan: The patient is advised to discontinue statin use due to joint pain and start Zetia 10 mg daily as an alternative. Condition is chronic and stable will continue to monitor. (6) Dizziness: Code(s): R42 - Dizziness and giddiness Category: Medical Plan: A carotid ultrasound and a Holter monitor are recommended to investigate the cause of dizziness and palpitations. Patient instructed to go to the emergency department she develops persistent dizziness or any other new symptoms. Patient understands agrees with this plan. (7) Palpitations: Code(s): R00.2 - Palpitations Category: Medical Plan: The patient will undergo a Holter monitor study to evaluate palpitations and potential arrhythmias. Patient instructed to go to the emergency department she develops any abnormal symptoms or persistent symptoms. Patient understands agrees with this plan. Plan Plan Patient was informed and verbally consented to the use of an ambient scribe for clinic note documentation during this visit. 1. Migraine Headaches The patient is advised to continue managing migraines with ibuprofen and caffeine as needed, given the sedative effects of sumatriptan. 2. Meningioma No active management is required for the meningioma as it is deemed non-progressive. 3. Macular Degeneration The patient is to continue receiving regular injections for macular degeneration. 4. Plantar Fasciitis Plantar fasciitis is stable and requires no current intervention. 5. Hyperlipidemia The patient is advised to discontinue statin use due to joint pain and start Zetia 10 mg daily as an alternative. 6. Dizziness A carotid ultrasound and a Holter monitor are recommended to investigate the cause of dizziness and palpitations. 7. Palpitations The patient will undergo a Holter monitor study to evaluate palpitations and potential arrhythmias. During the visit, we discussed the management of migraine headaches with ibuprofen and caffeine as an alternative to sumatriptan due to its sedative effects. We reviewed the patient's history of meningioma, which does not require active management. For hyperlipidemia, we decided to discontinue statin therapy due to joint pain and initiate Zetia 10 mg daily. We also addressed the patient's dizziness and palpitations, recommending a carotid ultrasound and Holter monitor to investigate further. Orders: Orders ECG 3 day holter monitor Today R00.2 - Palpitations, R42 - Dizziness and giddiness Complete Blood Count Auto Diff Today Z00.00 - Encounter for general adult medical examination without abnormal findings Comprehensive Met. Panel Today Z00.00 - Encounter for general adult medical examination without abnormal findings Magnesium Today Z00.00 - Encounter for general adult medical examination without abnormal findings US carotid duplex BI Today I65.23 - Occlusion and stenosis of bilateral carotid arteries, R55 - Syncope and collapse TSH reflex Free T4 Today Z00.00 - Encounter for general adult medical examination without abnormal findings ECG 12 lead EKG Today R00.2 - Palpitations, R42 - Dizziness and giddiness Medications: New ezetimibe (Zetia) 10 mg PO DAILY 90 tabs 3RF Discontinued pravastatin Discontinued Reason: Doctor's Order 40 mg PO DAILY 90 tabs 1RF Patient Instructions: - Continue using ibuprofen and caffeine for migraine management as needed. - Discontinue statin and start Zetia 10 mg daily for cholesterol management. - Attend scheduled appointments for carotid ultrasound and Holter monitor. - Report any worsening of symptoms or new concerns immediately.
--- OUTSIDE RECORDS SUMMARY | 2025-03-02 09:37 | XMS_ITS | Clinical Summary ---
Author Organization [facility] Address [address] [place] [phone] Phone Care Team Providers Care Transportation Technician Name Role Phone Reynold George DO Primary Care Provider Social History Tobacco Use Types Packs/Day Years Used Date Smoking Tobacco: Never Assessed Education Answer Date Recorded Are you interested in more education? Not on roderick e 09/03/2023 Are you concerned about learning? Not on file 09/03/2023 No 09/03/2023 No 09/03/2023 Digital Access Answer Date Recorded No 09/03/2023 No 09/03/2023 Reliable internet access at home? Not on file 09/03/2023 Device with a working camera? Not on file Comments Unknown Sex and Gender Information Value Date Recorded Sex Assigned at Not on file Legal Sex Female 11:09 AM EST Gender Identity Not on file Sexual Orientation Not on file Plan of Treatment Health Maintenance Due Date Last Done Comments Adult Td,Tdap Booster 1958 LIPID PANEL 1958 DEPRESSION SCREENING 1970 SMOKING Hx and SMOKELESS TOB ACCO SCREENING 1971 HEPATITIS C SCREENING 1976 MAMMOGRAM 1998 COLOGUARD 2003 COLONOSCOPY 2003 COLORECTAL CANCER SCREENING 2003 FIT TEST 2003 FOBT 2003 SIGMOIDOSCOPY 2003 VIRTUAL COLONOSCOPY 2003 PNEUMOCOCCAL VACCINES (50+ y ears) (1 of 1 - PCV) 2008 ZOSTER VACCINES (1 of 2) 2008 OSTEOPOROSIS SCREENING INITI AL (ONE-TIME) 2023 COVID-19 VACCINE ( - 2023-2 5 season) 2024 RSV VACCINE (1 - 1-dose 75+ series) 2033 HEPATITIS A VACCINES Aged Out No long er eligible based on patient's age to complete this topic HIB VACCINES Aged Out No longer eligi ble based on patient's age to complete this topic MENINGOCOCCAL VACCINES (ACWY) Aged Out No longer eligible based on patient's age to complete this topic MENINGOCOCCAL VACCINES (B) Aged Out N o longer eligible based on patient's age to complete this topic Medical Devices Not on file Insurance MEDICARE PART A & B [facility] MEDICARE REPLACEMENT MEDICARE PART A & B [facility] MEDICARE REPLACEMENT [place] [id number] MEDICARE PART A & B [facility] MEDICARE REPLACEMENT MEDICARE PART A & B [employer] [employer] MEDICARE REPLACEMENT [facility] A & [facility] MEDICARE PART A & B [facility] MEDICARE REPLACEMENT Care Teams Transportation Technician Relationship Specialty Start Date End Date Reynold George DO [address] [place] [phone] PCP - General Internal Medicine 09/02/23 Additional Source Comments The information contained in this document represents components of the legal health record. It is not the complete legal health record.[facility]
== END 2025-03-02 09:37 | disposition home or self-care (01) ==
LOC: HO.HMCSH 08:54
PROVIDERS: PCP Physician Assistant Medical; Visit Provider Physician Assistant Medical
DX: G43.909 Migraine, unspecified, not intractable, without status migrainosus (principal); D32.9 Benign neoplasm of meninges, unspecified; H35.30 Unspecified macular degeneration; M72.2 Plantar fascial fibromatosis; E78.00 Pure hypercholesterolemia, unspecified; R42 Dizziness and giddiness; R00.2 Palpitations

== ENCOUNTER → 2025-03-02 08:54 | Outpatient (BNVA) | payer MEDICARE, OTHER, SELFPAY | PROVIDERS: PCP Physician Assistant Medical; Visit Provider Physician Assistant Medical | DX: G43.909 Migraine, unspecified, not intractable, without status migrainosus (principal); D32.9 Benign neoplasm of meninges, unspecified; H35.30 Unspecified macular degeneration; M72.2 Plantar fascial fibromatosis; E78.00 Pure hypercholesterolemia, unspecified; R42 Dizziness and giddiness; R00.2 Palpitations | CPT/HCPCS: 96127; 99212 ==

== ENCOUNTER 2025-03-19 08:10 | Outpatient (REF) | payer MEDICARE, OTHER, SELFPAY ==
--- OUTSIDE RECORDS SUMMARY | 2025-03-19 08:13 | XMS_ITS | Clinical Summary ---
Author Organization [facility] Address [address] [place] [phone] Phone Care Team Providers Care Panel Coverer Name Role Phone Reynold George DO Primary [...] file Insurance MEDICARE PART A & B [facility] MEDICARE REPLACEMENT MEDICARE PART A & B [facility] MEDICARE REPLACEMENT [place] [id number] MEDICARE PART A & B [facility] MEDICARE REPLACEMENT MEDICARE PART A & B [place] [employer] MEDICARE REPLACEMENT MEDICARE PART A & [facility] REPLAC[facility] MEDICARE PART A & B [facility] MEDICARE REPLACEMENT Care Teams Panel Coverer Relationship Specialty Start Date End Date Reynold George DO [address] [place] [phone] PCP - General Internal Medicine 09/02/23 Additional Source Comments The information contained in this document represents components of the legal health record. It is not the complete legal health record.[facility]
[2025-03-19 11:09] LABS: MANUAL DIFF FLAG NO
[2025-03-19 11:12] LABS: Hematocrit 38.2 % (37.0-47.0); Hemoglobin 13.1 g/dl (12.0-16.0); Imm Gran Abs Auto 0.01 X10*3/uL (0.00-0.03); Imm Gran Pct Auto 0.2 % (0.0-0.4); Lymphocytes Absolute Auto 1.3 X10*3/uL (1.2-4.9); Mean Corpuscular HGB Conc 34.3 g/dl (31.0-35.0); Mean Corpuscular Hemoglobin 30.8 pg (27.0-33.0); Mean Corpuscular Volume 89.9 fL (80.0-98.0); NRBC Abs Auto 0.000 X10*3/uL (0.0-0.012); NRBC Pct Auto 0.0 /100WBC (0.0-0.2); Platelet Count 217 X10*3/uL (160-400); Red Blood Count 4.25 X10*6/uL (4.20-5.50); White Blood Count 4.9 X10*3/uL (4.8-10.8)
[2025-03-19 11:44] LABS: Alanine Aminotransferase 23 U/L (0-31); Albumin Level 4.3 g/dL (3.5-5.0); Alkaline Phosphatase 107 U/L (39-117); Anion Gap 14 (12-20); Aspartate Amino Transferase 23 U/L (5-31); Blood Urea Nitrogen 19 mg/dL (9-16); Calcium 9.2 mg/dL (8.4-10.2); Carbon Dioxide 25 mmol/L (22-29); Chloride 106 mmol/L (96-108); Estimated Glomerular Filt Rate > 60; Magnesium 2.0 mg/dL (1.6-2.6); Potassium 3.8 mmol/L (3.3-5.1); Sodium 141 mmol/L (135-145); Total Protein 7.0 g/dL (6.5-8.0)
== END 2025-03-19 08:11 | disposition home or self-care (01) ==
LOC: HO.HMGCLDS 08:10
PROVIDERS: PCP Physician Assistant Medical; Visit Provider Physician Assistant Medical
DX: Z00.00 Encounter for general adult medical examination without abnormal findings (principal)
CPT/HCPCS: 36415; 80053; 83735; 84443; 85025

== ENCOUNTER 2025-04-04 09:30 | Emergency (ER) | payer MEDICARE, OTHER, SELFPAY ==
--- NOTE | ~2025-04-04 | CT_ITS ---
EXAMINATION: CT ABDOMEN AND PELVIS WITH CONTRAST CLINICAL INFORMATION: Abdominal pain, rule out small bowel junction COMPARISON: None available. TECHNIQUE: Multidetector volumetric images were obtained from the superior aspect of the liver through the pubic symphysis following administration 85 mL of Omnipaque 350 intravenous contrast. Sagittal and coronal reformatted images were obtained on the technologist's workstation. Oral contrast: No This CT examination was performed using dose optimization techniques as appropriate, variously including the following: *Automated exposure control *Adjustment of mA and/or kV according to patient size (this includes techniques or standardized protocols for targeted exams where dose is matched to indication/reason for exam; i.e. extremities or head) *Use of iterative reconstruction technique FINDINGS: LUNG BASES: The visualized lung bases are unremarkable. LIVER, GALLBLADDER, AND BILIARY TREE: The liver is normal in size, shape, and attenuation. No focal hepatic lesion or biliary ductal dilatation is present. The gallbladder is unremarkable with no evidence of radiopaque gallstones, gallbladder wall thickening, or obvious pericholecystic inflammatory changes. PANCREAS: Unremarkable. SPLEEN: Unremarkable. ADRENAL GLANDS: Unremarkable. KIDNEYS AND URETERS: The kidneys are normal in size, shape, and attenuation. No hydronephrosis, hydroureter, or calculi seen. No perinephric stranding. BLADDER: Unremarkable. GASTROINTESTINAL TRACT: Suspected changes of right hemicolectomy. There are pseudodiverticula at the appendix flexure, and in the descending and sigmoid colon. There is increased vascularity in the mesentery along the sigmoid colon with mild fat stranding, trace free fluid, and mild wall thickening. There is also hyperenhancement of a pseudodiverticula most consistent with infection. No loculated fluid collection is identified. No localized or generalized free air is identified. There is a very small sliding hiatal hernia involving gastric cardia. ABDOMINAL WALL: No significant hernia is appreciated. LYMPH NODES: Normal. VASCULAR: Unremarkable. PELVIC VISCERA: There are multiple right ovarian cyst measuring up to 2.2 cm. Uterus and left adnexa are unremarkable. OSSEOUS STRUCTURES: Unremarkable. CT/CT abdomen pelvis w IV con IMPRESSION: Acute diverticulitis involving sigmoid colon without visible abscess or free air. Suspect right hemicolectomy. Indeterminate right ovarian cysts measuring up to 2.2 cm. Follow-up nonemergent pelvic ultrasound. There is a small sliding hiatal hernia. Fleischner guidelines were followed. Electronically signed by: Edgar Green MD 04/04/2025 11:26 AM EDT RP
[2025-04-04 09:38] VITALS: BP 123/74; PULSE 87; RESP 16; TEMP 36.7; O2SAT 98; BMI 22.6
[2025-04-04 09:55] VITALS: BP 130/72; PULSE 84; RESP 16; O2SAT 94
[2025-04-04 09:55] LABS: MANUAL DIFF FLAG NO
--- NOTE | 2025-04-04 09:58 | ED.ABDPAIN ---
HPI - Abdominal Pain General Chief Complaint: Abdominal Pain Stated Complaint: bowel obstruction Time Seen by Provider: 04/04/25 09:51 Source: patient Mode of arrival: ambulatory Limitations: no limitations History of Present Illness ED Provider: HPI narrative: 64-year-old female with history of Crohn's and prior surgery reports abdominal distention, pain, last bowel movement 3 days ago, and paucity of passing gas. Reports slight nausea and cramping. No fevers or chills no chest pain no shortness of breath. Related Data Home Medications ?Medication ?Instructions ?Recorded ?Confirmed coenzyme Q10 100 mg capsule (Co 100 mg PO DAILY 03/18/23 03/02/25 Q-10) magnesium citrate 100 mg capsule 100 mg PO DAILY 09/01/24 03/02/25 mv-mn-folic 200 mcg-vit K 15 cap PO 09/01/24 03/02/25 mcg-lutein 5 mg-zeaxanthin 1 mg capsule (PreserVision AREDS 2 Plus Multivit) sumatriptan succinate 25 mg tablet See Rx Instructions PO .COMPLEX 09/01/24 03/02/25 Previous Rx's ?Medication ?Instructions ?Recorded ezetimibe 10 mg tablet (Zetia) 10 mg PO DAILY #90 tabs 03/02/25 ciprofloxacin HCl 500 mg tablet 500 mg PO BID 7 days #14 tabs 04/04/25 (Cipro) metronidazole 500 mg tablet 500 mg PO BID 7 days #14 tabs 04/04/25 Allergies Allergy/AdvReac Type Severity Reaction Status Date / Time amoxicillin Allergy Unknown hives, Verified 04/04/25 09:40 rash, rash, rash, rash Review of Systems Constitutional: Reports as per HPI [facility] Past Medical History Medical History Near syncope Occlusion and stenosis of bilateral carotid arteries Palpitations Dizziness Dysuria History of mammogram (~02/16/24) Migraine headache Meningioma Macular degeneration Plantar fasciitis of right foot Blurry vision, left eye Weakness of left side of body Crohn's disease Mild hypercholesterolemia Surgical History History of colonoscopy (~05/24/20) History of excision of mass (05/15/23) History of urinary tract surgery History of excision of intestinal structure Family History Family History Mother High blood pressure Macular degeneration Diabetes Arthritis Social History Social History Housing: House Alcohol intake: current Alcohol intake frequency: holidays/special occasions only Patient Tobacco Use Status: Never used Tobacco Smoked in Last 30 Days: No Use of substances other than those prescribed or required for medical reasons: No Advance Directives: Yes Advance Directives Information Provided: No Advance Directives on File: No service: No Current occupational status: retired Cognitive needs: No Hearing needs: No Vision needs: Yes (cheaters ) Physical Exam ED Vital Signs: Vital Signs - 24 hr 04/04/25 09:38 04/04/25 09:55 Temperature 98.0 F Pulse Rate 87 84 Respiratory Rate 16 16 Blood Pressure 123/74 130/72 Pulse Oximetry 98 94 Oxygen Delivery Method Room Air Room Air BMI result Body Mass Index 22.6 Const Other: Gen: ?Overall well-appearing patient HEENT: PERRLA, EOMI, MMM, Neck: Supple, no LAD CV: RRR, no obvious murmurs appreciated Resp: ?No wheezing rales rhonchi no stridor moving air well Abd: ?Hyperactive bowel sounds, generalized tenderness suprapubic distention MSK: FROM, strength 5/5 all extremities Skin: Warm, dry, intact, Neuro: ?Alert and oriented x3, moving upper and lower extremities symmetrically, no obvious facial asymmetry noted Medical Decision Making Medical Decision Making [facility] Narrative: 10:01 AM 04/04/2025 (Dr. Delmar Miller): Patient is presenting with abdominal pain, distention, reports decreased bowel movements and decreased passing of gas, does have risk factors for SBO history of Crohn's with colectomy 27 years ago. 11:37 AM 04/04/2025 (Dr. Delmar Miller): Updated patient of CT findings of diverticulitis we will discharge Differential Diagnosis Differential Diagnoses: The differential diagnosis associated with the presentation includes (SBO, diverticulitis, colitis, volvulus, urinary retention) Admission/Observation Consideration of admission/observation: Escalation of care including admission/observation considered Lab Data [facility] Lab Attestation statement: I reviewed the patient's lab results. 04/04/25 09:51 04/04/25 09:51 Labs: Lab Results 04/04/25 Range/Units 09:51 WBC 12.7 H (4.8-10.8) X10*3/uL RBC 4.42 (4.20-5.50) X10*6/uL Hgb 13.6 (12.0-16.0) g/dl Hct 39.4 (37.0-47.0) % MCV 89.1 (80.0-98.0) fL MCH 30.8 (27.0-33.0) pg MCHC 34.5 (31.0-35.0) g/dl RDW 13.1 (11.0-16.0) % Plt Count 196 (160-400) X10*3/uL MPV 11.2 (9.4-12.3) fL Immature Gran % (Auto) 0.3 (0.0-0.4) % Neut % (Auto) 80.6 H (45-73) % Lymph % (Auto) 10.3 L (20-40) % [place] % (Auto) 8.2 (2-11) % Eos % (Auto) 0.3 (0-4) % Baso % (Auto) 0.3 (0-2) % Lymph # (Auto) 1.3 (1.2-4.9) X10*3/uL [place] # (Auto) 1.0 (0.1-1.2) X10*3/uL Eos # (Auto) 0.0 (0.0-0.4) X10*3/uL Baso # (Auto) 0.0 (0.0-0.2) X10*3/uL Abs Immat Gran (auto) 0.04 H (0.00-0.03) X10*3/uL Absolute Neuts (auto) 10.2 H (2.0-8.3) x10*3/uL Absolute Nucleated RBC 0.000 (0.0-0.012) X10*3/uL Nucleated RBC % (auto) 0.0 (0.0-0.2) /100WBC Sodium 138 (135-145) mmol/L Potassium 4.1 (3.3-5.1) mmol/L Chloride 106 (96-108) mmol/L Carbon Dioxide 27 (22-29) mmol/L Anion Gap 9 L (12-20) BUN 14 (9-16) mg/dL Creatinine 0.77 (0.5-1.4) mg/dL Estim Creat Clear Calc 67.2 Estimated GFR > 60 Random Glucose 105 (60-115) mg/dL Calcium 9.5 (8.4-10.2) mg/dL Total Bilirubin 1.0 (0.0-1.0) mg/dL AST 24 (5-31) U/L ALT 23 (0-31) U/L Alkaline Phosphatase 121 H (39-117) U/L Total Protein 7.5 (6.5-8.0) g/dL Albumin 4.3 (3.5-5.0) g/dL Independent Interpretation I performed an independent interpretation of an: CT Scan (History of colectomy, some fat stranding no free air no obstructive patterns) Radiology Impression Discussion of test interpretation with radiology: I have reviewed the radiologist's reading. Chronic Conditions Patient?s care impacted by: Other (Crohn's disease) Medications Administered Discontinued Medications Generic Name Dose Route Start Last Admin Trade Name Freq PRN Reason Stop Dose Admin Iohexol 100 ml 04/04/25 10:48 04/04/25 10:48 Iohexol 350 Mg/Ml 100 Ml Infus..Btl IV 04/04/25 10:49 85 ml ONCE ONE Administration Ondansetron HCl 4 mg 04/04/25 09:58 04/04/25 10:35 Ondansetron Hcl 4 Mg/2 Ml Vial IVPUSH 04/04/25 09:59 4 mg ONCE ONE Administration Critical Care Time Critical Care Time Critical Care Time: Yes Total Critical Care Time: 32 Attestation: Time is exclusive of separately billable procedures. Time includes: direct patient care, patient reassessment, coordination of patient care, interpretation of data (laboratory data, pulse oximetry, arterial blood gases and chest xrays), review of patient's medical records, medical consultation and documentation of patient care. Procedures excluded from critical care time: central intravenous line placement and electrocardiography. Discharge Plan Discharge Clinical Impression: Diverticulitis of sigmoid colon Patient Disposition: Home, Self-Care Additional Instructions: On metronidazole, do NOT drink alcohol.? Call your provider if a metallic taste, loss of appetite, or nausea makes it difficult for you to eat.? Call your provider promptly if tingling develops in your hands or feet after you have taken a total of 30 grams or more of metronidazole. ? Ciprofloxacin twice a day as well Blood work reassuring, cat scan with sigmoid diverticulitis, follow up with the PCP Symptoms typically improve in the next 3-4 days after starting antibiotics Worsening pain spiking fevers come back to the ER Prescriptions: New ciprofloxacin HCl [Cipro] 500 mg tablet 500 mg PO BID 7 Days Qty: 14 0RF metronidazole 500 mg tablet 500 mg PO BID 7 Days Qty: 14 0RF No Action coenzyme Q10 [Co Q-10] 100 mg capsule 100 mg PO DAILY ezetimibe [Zetia] 10 mg tablet 10 mg PO DAILY Qty: 90 3RF magnesium citrate 100 mg capsule 100 mg PO DAILY sumatriptan succinate 25 mg tablet See Rx Instructions PO .COMPLEX Rx Instructions: take 1 tab at onset of headache; if no relief may repeat 1 tab after at least 2 hrs; max = 4 tabs/24 hr PO PreserVision AREDS 2 Plus MV 200 mcg-15 mcg- 5 mg-1 mg capsule PO Print Language: Bots[place]
--- NOTE | 2025-04-04 09:59 | PC.NURSE ---
Addendum entered by Misty Campo RN 04/04/25 10:52: Patient presents stating she thinks she has a bowel obstruction. History of chrohns, stating some of her large bowel was removed. No BM for the past 3 days with a decrease in flatus. Alert and oriented. Lungs clear bilat. Respirations even and non-labored. Abdomen soft with hyperactive bowel sounds. c/o LLQ abdominal cramping with intermittent nausea. Positive pedal pulses with no edema noted. Original Note: Medical History Near syncope Occlusion and stenosis of bilateral carotid arteries Palpitations Dizziness Dysuria History of mammogram (~02/16/24) Migraine headache Meningioma Macular degeneration Plantar fasciitis of right foot Blurry vision, left eye Weakness of left side of body Crohn's disease Mild hypercholesterolemia
[2025-04-04 10:02] LABS: Hematocrit 39.4 % (37.0-47.0); Hemoglobin 13.6 g/dl (12.0-16.0); Imm Gran Abs Auto 0.04 X10*3/uL (0.00-0.03); Imm Gran Pct Auto 0.3 % (0.0-0.4); Lymphocytes Absolute Auto 1.3 X10*3/uL (1.2-4.9); Mean Corpuscular HGB Conc 34.5 g/dl (31.0-35.0); Mean Corpuscular Hemoglobin 30.8 pg (27.0-33.0); Mean Corpuscular Volume 89.1 fL (80.0-98.0); NRBC Abs Auto 0.000 X10*3/uL (0.0-0.012); NRBC Pct Auto 0.0 /100WBC (0.0-0.2); Platelet Count 196 X10*3/uL (160-400); Red Blood Count 4.42 X10*6/uL (4.20-5.50); White Blood Count 12.7 X10*3/uL (4.8-10.8)
[2025-04-04 10:11] LABS: Alanine Aminotransferase 23 U/L (0-31); Albumin Level 4.3 g/dL (3.5-5.0); Alkaline Phosphatase 121 U/L (39-117); Anion Gap 9 (12-20); Aspartate Amino Transferase 24 U/L (5-31); Blood Urea Nitrogen 14 mg/dL (9-16); Calcium 9.5 mg/dL (8.4-10.2); Carbon Dioxide 27 mmol/L (22-29); Chloride 106 mmol/L (96-108); Creatinine Clr Calc Pharmacy 67.2; Estimated Glomerular Filt Rate > 60; Potassium 4.1 mmol/L (3.3-5.1); Sodium 138 mmol/L (135-145); Total Protein 7.5 g/dL (6.5-8.0)
[2025-04-04] MEDS: iohexoL 350 MG/ML 100 ML INFUS..BTL IV (10:48)
[2025-04-04 11:55] VITALS: BP 108/56; PULSE 81; RESP 16; TEMP 37.2; O2SAT 97
--- OUTSIDE RECORDS SUMMARY | 2025-04-04 12:08 | XMS_ITS | Clinical Summary ---
Author Organization [facility] Address [address] [place] [phone] Phone Care Team Providers Care [facility] Director Name Role Phone Reynold George DO Primary [...] 2008 OSTEOPOROSIS SCREENING INITI AL (ONE-TIME) 2023 INFLUENZA VACCINE (#1) 2025 COVID-19 VACCINE ( - 2023-2 5 season) 2025 RSV VACCINE (1 - 1-dose 75+ series) [...] file Insurance MEDICARE PART A & B [facility] MEDICARE REPLACEMENT MEDICARE PART A & B MEDICARE REPLACEMENT [employer] [place] [id number] MEDICARE PART A & B [facility] MEDICARE REPLACEMENT MEDICARE PART A & B [employer] MEDICARE REPLACEMENT MEDICARE PART A & B [employer] MEDICARE REPLACEMENT MEDICARE PART A & B [employer] MEDICARE REPLACEMENT Care Teams [facility] Director Relationship Specialty Start Date End Date Reynold George DO [address] [place] [phone] PCP - General Internal Medicine 09/02/23 Additional Source Comments The information contained in this document represents components of the legal health record. It is not the complete legal health record.[facility]
== END 2025-04-04 12:01 | disposition home or self-care (01) ==
PROVIDERS: Emergency Provider Emergency Medicine; PCP Physician Assistant Medical
DX: K57.32 Diverticulitis of large intestine without perforation or abscess without bleeding (principal); Z87.19 Personal history of other diseases of the digestive system; Z79.899 Other long term (current) drug therapy
CPT/HCPCS: 36415; 74177; 80053; 85025; 96374; 99284; 99285; J2405; Q9967

== ENCOUNTER → 2025-04-04 09:59 | Outpatient (BNV) | payer MEDICARE, OTHER, SELFPAY | PROVIDERS: Emergency Provider Emergency Medicine; PCP Physician Assistant Medical; Visit Provider Radiology Diagnostic Radiology | DX: K57.32 Diverticulitis of large intestine without perforation or abscess without bleeding (principal) | CPT/HCPCS: 74177 ==

== ENCOUNTER 2025-04-11 10:49 | Outpatient (AMB) | payer MEDICARE, OTHER, SELFPAY ==
--- NOTE | 2025-04-11 10:53 | A.OFFPC_ITS ---
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 Accompanied by: Self / Same As Patient Allergies amoxicillin Allergy (Unknown, Verified 04/11/25 11:31) hives, rash, rash, rash, rash Medication List - Last Reconciled 04/11/25 by Nadira Terry PA-C coenzyme Q10 (Co Q-10) 100 mg PO DAILY ezetimibe (Zetia) 10 mg PO DAILY magnesium citrate 100 mg PO DAILY at-vwv-SI-vit U-rtwrca-puyugsg 200 mcg-15 mcg- 5 mg-1 mg (PreserVision AREDS 2 Plus Multivit) caps PO sumatriptan succinate take 1 tab at onset of headache; if no relief may repeat 1 tab after at least 2 hrs; max = 4 tabs/24 hr PO Tobacco use date assessed: 04/11/25 Fall risk assessment: 1 Fall in past year Last assessed Fall Risk: 04/11/25 Dental Screening Dental Screen Date: 04/11/25 Did you have a dental visit in the last 12 months?: Yes Was dental information given to patient?: Patient has dentist HPI ER Visit HPI Details The patient is a 64-year-old female presenting for an emergency room discharge follow-up due to abdominal pain in the left lower quadrant. The patient reports a history of diverticula identified during a colonoscopy, although she has never experienced an episode of diverticulitis until recently. She experienced abdominal pain which led to an emergency room visit where a CT scan confirmed acute diverticulitis involving the sigmoid colon. The patient has a history of migraines and has been managing them without medication, opting instead for alternative therapies such as physical therapy, pharmacist critical care, dry needling, and massage therapy. She reports that these interventions provided temporary relief, but symptoms would recur. The patient was prescribed Ciprofloxacin, which she was initially hesitant to take due to concerns about tendon rupture, but completed the course and noted significant improvement in her symptoms, including resolution of migraines and neck pain. She also reports a reduction in ear itching and ringing, which she attributes to the antibiotic treatment possibly clearing a chronic sinus infection. A right ovarian cyst was identified during imaging, and a nonemergent pelvic ultrasound has been recommended for further evaluation. The patient does not currently have a fabrication department supervisor, so a referral will be made based on the ultrasound results. Additionally, the patient has a small sliding hiatal hernia, which she is aware of due to a family history of the condition. Social History - Exercise: Engages in physical therapy, pharmacist critical care, dry needling, and massage therapy for migraine management. [facility] Medical History (Updated 04/11/25 @ 11:38 by Nadira Terry PA-C) Chronic sinusitis Sliding hiatal hernia Diverticulitis Ovarian cyst Near syncope Occlusion and stenosis of bilateral carotid arteries Palpitations Dizziness Dysuria History of mammogram (~02/16/24) Migraine headache Meningioma Macular degeneration Plantar fasciitis of right foot Blurry vision, left eye Weakness of left side of body Crohn's disease Mild hypercholesterolemia Surgical History History of colonoscopy (~05/24/20) History of excision of mass (05/15/23) History of urinary tract surgery History of excision of intestinal structure Family History Mother High blood pressure Macular degeneration Diabetes Arthritis Social History Housing: House Alcohol intake: current Alcohol intake frequency: holidays/special occasions only Patient Tobacco Use Status: Never used Tobacco service: No Current occupational status: retired Cognitive needs: No Hearing needs: No Vision needs: Yes (cheaters ) Questionnaire PHQ-9 Over the last 2 weeks, how often have you been bothered by any of the following problems? 1. Little interest or pleasure in doing things: not at all 2. Feeling down, depressed, or hopeless: not at all 3. Trouble falling or staying asleep, or sleeping too much: not at all 4. Feeling tired or having little energy: not at all 5. Poor appetite or overeating: not at all 6. Feeling bad about yourself - or that you are a failure or have let yourself or your family down: not at all 7. Trouble concentrating on things, such as reading the newspaper or watching television: not at all 8. Moving or speaking so slowly that other people could have noticed. Or the opposite - being so fidgety or restless that you have been moving around a lot more than usual: not at all 9. Thoughts that you would be better off or of hurting yourself in some way: not at all Total score: 0 Depression Screening Interpretation: Negative Depression Screening Done: Yes 41235 - PHQ-9 Billing: Yes Source: Developed by Drs. Reynold Taveras, Rahel Crabtree, Po Banegas and colleagues, with an educational camelia from [employer]. Thrive Questionnaire Date Thrive assessed: 04/11/25 I am a: Patient What is your living situation today?: I have a steady place to live Within the past 12 months, did the food you bought not last and you didn't have the money to get more?: Never true Within the past 12 months, did you worry whether your food would run out before you got money to buy more?: Never true Do you have trouble paying for medicines?: No Do you have trouble getting transportation to medical appointments?: No Do you have trouble paying your heating and electricity bill?: No Do you have trouble taking care of your child, family member or friend?: No Do you have trouble with day-to-day activities such as bathing, preparing meals, shopping, managing finances, etc.?: No Are you currently unemployed and looking for a job?: No Are you interested in more education?: No Please select the resources that you would like help with: None Currently or been in a relationship where the following occur: No concerns reported THRIVE Score: 0 AUDIT C Alcohol Use Questionnaire (AUDIT-C) 1. How often do you have a drink containing alcohol?: Monthly or less 2. How many drinks containing alcohol do you have on a typical day when you are drinking?: 1 or 2 3. How often do you have six or more drinks on one occasion?: Never Total Score: 1 Score Reviewed/Action Taken: No EMELY-7 AMB Questionnaire EMELY-7 Date EMELY - 7 assessed: 04/11/25 Feeling nervous, anxious, or on edge: 0 = Not at all Not being able to stop or control worryin = Not at all Worrying too much about different things: 0 = Not at all Trouble relaxin = Not at all Being so restless that it is hard to sit still: 0 = Not at all Becoming easily annoyed or irritable: 0 = Not at all Feeling afraid as if something awful might happen: 0 = Not at all Total EMELY-7 score (0-4 normal; 5-9 mild; 10-14 moderate; 15-21 severe): 0 Source: Developed by Drs. Reynold Taveras, Rahel Crabtree, Po Banegas and colleagues, with an educational camelia from [employer]. EMELY-7 Assessment Billing EMELY-7 Assessment Tool: EMELY-7 Assessment 01911 Review of Systems Const Details: - Gastrointestinal: Reports abdominal pain in the left lower quadrant. - Neurological: Reports migraines, denies current headache. - Ears: Reports itching and ringing, improved with treatment. All systems reviewed & are unremarkable except as noted in HPI and below Physical exam (Primary Care) Vital Signs: Last Vital Signs Temp 97.0 F 04/11/25 10:55 Pulse 75 04/11/25 10:55 Resp 20 04/11/25 10:55 BP 118/58 L 04/11/25 10:55 Pulse Ox 97 04/11/25 10:55 Oxygen Delivery Method Room Air 04/11/25 10:55 Care Plan Goal for BP management: <140/90 at Goal BMI result Body Mass Index 23.7 Normal BMI Tobacco/Smoking Status: Tobacco use Status Tobacco use date assessed 04/11/25 04/11/25 11:01 Patient Tobacco Use Status Never used Tobacco 04/11/25 11:01 PHQ-9: PHQ-9 Score PHQ-9: Total score 0 04/11/25 11:09 Depression Screening Interpretation: Negative Thrive Assessment: Date of Thrive Assessment Date Thrive assessed 04/11/25 04/11/25 11:01 Currently or been in a relationship where the following occur: No concerns reported Const Other: Appearance: Alert. Oriented X3. No acute distress. Head: Normal external exam. Normocephalic. Atraumatic. Eyes: Pupils are equal, round, and reactive to light. Extraocular movements intact. Conjunctiva and sclera normal. Eyelids normal. Throat: Pharynx normal. Uvula midline. Moist mucous membranes. Possible postnasal drip irritation. Neck: Normal inspection. Neck supple. Full range of motion. Cardiovascular: Normal heart rate and rhythm. Respiratory: No respiratory distress. Painless inspiration. Abdomen: Soft and nontender. No distention noted. No organomegaly noted. No visible injury noted. History of acute diverticulitis involving the sigmoid colon. Back: No costovertebral angle tenderness. Full range of motion noted. Skin: Skin warm and dry. Normal skin color. Normal skin turgor. No rashes/lesions/lacerations noted. Extremities: Extremities exhibit normal range of motion. Extremities nontender. Neuro: Oriented X 3. No motor deficit. No sensory deficit. Reflexes normal. Office Procedures Flu Questionnaire Does the patient have a severe egg allergy?: No Does the patient have severe life threatening allergies?: No Does the patient have a fever or illness today?: No Has the patient ever had Guillain-[place] Syndrome?: No Has the patient ever had any past reaction to a flu shot?: No Immunizations Fluarix [id number] (PF) 45 mcg (15 mcg x 3)/0.5 mL IM syringe Performing Provider: Nadira Terry PA-C [facility] Documented (not given) by: Johanny Morales CMA on 04/11/25 11:02 Reason Not Given: Patient Refused Results Reviewed Results Reviewed: - Imaging: CT scan showed acute diverticulitis involving the sigmoid colon. - Imaging: Right ovarian cyst identified, recommended for nonemergent pelvic ultrasound. Coding Level of Care Code Est Pt Level 4 (65059) Complex EM visit Add On G2211 Diagnoses Diverticulitis K57.92 Ovarian cyst N83.209 Sliding hiatal hernia K44.9 Chronic sinusitis J32.9 Additional Codes EMELY-7 Assessment Billing - EMELY-7 Assessment Tool: EMELY-7 Assessment 20583 ([id number]) PHQ-9 - 27377 - PHQ-9 Billing: Yes ([id number]) Assessment & Plan Assessment & Plan (1) Diverticulitis: Code(s): K57.92 - Diverticulitis of intestine, part unspecified, without perforation or abscess without bleeding Category: Medical Plan: The patient was treated with Ciprofloxacin and Flagyl for acute diverticulitis involving the sigmoid colon. She is advised to contact the clinic if symptoms recur to avoid unnecessary emergency room visits and CT scans. (2) Ovarian cyst: Code(s): N83.209 - Unspecified ovarian cyst, unspecified side Category: Medical Plan: A nonemergent pelvic ultrasound is planned to evaluate the right ovarian cyst further. A referral to a fabrication department supervisor will be made based on the ultrasound find ings. (3) Sliding hiatal hernia: Code(s): K44.9 - Diaphragmatic hernia without obstruction or gangrene Category: Medical Plan: The patient is aware of her small sliding hiatal hernia and has a family history of the condition. (4) Chronic sinusitis: Code(s): J32.9 - Chronic sinusitis, unspecified Category: Medical Plan: The patient experienced improvement in symptoms such as ear itching and ringing following antibiotic treatment, suggesting a possible chronic sinus infection. Plan Plan Patient was informed and verbally consented to the use of an ambient scribe for clinic note documentation during this visit. 1. Acute Diverticulitis The patient was treated with Ciprofloxacin and Flagyl for acute diverticulitis involving the sigmoid colon. She is advised to contact the clinic if symptoms recur to avoid unnecessary emergency room visits and CT scans. 2. Right Ovarian Cyst A nonemergent pelvic ultrasound is planned to evaluate the right ovarian cyst further. A referral to a fabrication department supervisor will be made based on the ultrasound findings. 3. Small Sliding Hiatal Hernia The patient is aware of her small sliding hiatal hernia and has a family history of the condition. 4. Chronic Sinusitis The patient experienced improvement in symptoms such as ear itching and ringing following antibiotic treatment, suggesting a possible chronic sinus infection. During the visit, I discussed with the patient the management of her acute diverticulitis, emphasizing the importance of contacting the clinic if symptoms recur to prevent unnecessary emergency room visits and CT scans. We also discussed the plan for a pelvic ultrasound to evaluate the right ovarian cyst and the potential need for a fabrication department supervisor referral based on the findings. I explained the significance of her small sliding hiatal hernia and chronic sinusitis, noting the improvement in symptoms following antibiotic treatment. Orders: Orders Influenza [id number] Immunization Today Z23 - Encounter for immunization US pelvic complete Today N83.209 - Unspecified ovarian cyst, unspecified side Patient Instructions: - Contact the clinic if abdominal pain recurs to avoid unnecessary ER visits. - Await scheduling for the pelvic ultrasound and follow up with a fabrication department supervisor if needed. - Resume regular medications a few days after completing Ciprofloxacin.
[2025-04-11 10:55] VITALS: BP 118/58; PULSE 75; RESP 20; TEMP 36.1; O2SAT 97; BMI 23.7
--- OUTSIDE RECORDS SUMMARY | 2025-04-11 12:21 | XMS_ITS | Clinical Summary ---
Author Organization [facility] Address [address] [place] [phone] Phone Care Team Providers Care Diesel Mechanic Apprentice Name Role Phone Reynold George DO Primary [...] file Insurance MEDICARE PART A & B [facility] MEDICARE REPLACEMENT MEDICARE PART A & B MEDICARE REPLACEMENT [place] [place] [id number] MEDICARE PART A & B [facility] MEDICARE REPLACEMENT MEDICARE PART A & B [employer] MED[employer]ARE REPLACEMENT MEDICARE PART A & B [employer] MEDICARE REPLACEMENT MEDICARE PART A & B [employer] MEDICARE REPLACEMENT Care Teams Diesel Mechanic Apprentice Relationship Specialty Start Date End Date Reynold George DO [address] [place] [phone] PCP - General Internal Medicine 09/02/23 Additional Source Comments The information contained in this document represents components of the legal health record. It is not the complete legal health record.[facility]
== END 2025-04-11 11:28 | disposition home or self-care (01) ==
LOC: HO.HMCSH 10:49
PROVIDERS: PCP Physician Assistant Medical; Visit Provider Physician Assistant Medical
DX: K57.92 Diverticulitis of intestine, part unspecified, without perforation or abscess without bleeding (principal); N83.209 Unspecified ovarian cyst, unspecified side; K44.9 Diaphragmatic hernia without obstruction or gangrene; J32.9 Chronic sinusitis, unspecified; Z23 Encounter for immunization

== ENCOUNTER → 2025-04-11 10:49 | Outpatient (BNVA) | payer MEDICARE, OTHER, SELFPAY | PROVIDERS: PCP Physician Assistant Medical; Visit Provider Physician Assistant Medical | DX: R10.32 Left lower quadrant pain (principal); G43.909 Migraine, unspecified, not intractable, without status migrainosus; N83.201 Unspecified ovarian cyst, right side; K44.9 Diaphragmatic hernia without obstruction or gangrene; J32.9 Chronic sinusitis, unspecified; Z28.21 Immunization not carried out because of patient refusal | CPT/HCPCS: 90471; 96127; 99212 ==

== ENCOUNTER 2025-05-03 10:15 | Outpatient (REF) | payer MEDICARE, OTHER, SELFPAY ==
--- NOTE | ~2025-05-03 | US_ITS ---
CLINICAL HISTORY: I65.23 - Occlusion and stenosis of bilateral carotid arteries US Bilateral Carotid Duplex Comparison: None provided Findings: There is plaque within the carotid bulbs. Normal color doppler and waveforms morphology. Peak systolic velocities: Right CCA: 67 cm/s. Right ICA: 220 cm/s. ICA/CCA ratio: 3.2 Right ECA: 81.8 cm/s. Right vertebral artery flow antegrade. Left CCA: 69 cm/s. Left ICA: 120 cm/s. Tortuous left ICA. ICA/CCA ratio: 0.8 Left ECA: 50.9 cm/s. Left vertebral artery flow antegrade. IMPRESSION: 0-49% stenosis of the left internal carotid artery. 50-79% stenoses of the right internal carotid artery. This document has been electronically signed by: Barak Yañez MD on 05/04/2025 12:50:31
--- NOTE | 2025-05-03 11:03 | HM_ITS ---
* Total monitoring time 3 days. * Underlying rhythm is sinus with an average rate of 71/Min. * Rare supraventricular ectopy. Short runs noted. * Rare ventricular ectopy. One episode of 4 beat run. * No significant pauses or high-grade AV blocks. * No patient markers or diary events. MTDD
--- NOTE | 2025-05-03 11:06 | ECG_ITS ---
Test Reason : DIZZINESS Blood Pressure : */* mmHG Vent. Rate : 61 BPM Atrial Rate : 61 BPM P-R Int : 146 ms QRS Dur : 70 ms QT Int : 428 ms P-R-T Axes : 9 47 39 degrees QTcB Int : 430 ms Normal sinus rhythm Normal ECG When compared with ECG of 22-Apr-2007 14:08, No significant change was found Referred By: Nadira Terry Electronically Signed By: JHONY HANCOCK MD
--- OUTSIDE RECORDS SUMMARY | 2025-05-03 12:04 | XMS_ITS | Data Portability ---
Author Organization [place] - [facility], Allergy Address [address] [address] Assessment Encounter Date Assessment Date Assessment LastModified by Organization Details LastModified Time 04/14/2025 04/14/2025 Assessment: - Persistent migraines. - Tinnitus. - Ear itchiness. Plan: The patient was evaluated for potential findings contributing to her symptoms. Examination revealed a deviated septum to the left but no polyps or mucus. Given the overlap between migraines, allergies, and sinus issues, imaging was recommended to further investigate potential sinus involvement. The patient was educated on the potential causes of her symptoms and the challenges in differentiating between migraines and sinus-related issues. The patient was informed that her symptoms, including neck and shoulder pain, are atypical for sinus infections but may be related to other underlying conditions. Will assess her symptoms of tinnitus further with audiogram at follow up. [email or web address] Not available 04/18/2025 15:34:47 Plan of Treatment Reminders Order Date Submit Date Provider Last Modified By Organization Details Last Modified Time Details Appointments Establish ed 15 2024 10:00A M DWAYNE CARRILLO MD Not available Not available Not available Hearing Test Only 2024 03:30P M Hearing Test Not available Not available Not available Lab None recorded. Referral None recorded. Procedures None recorded. Surgeries None recorded. Imaging CT, sinuses, w/o contrast 2024 025 [email or web address] [facility] [place], [address] , [facility] [address], [place], [address], 04/25/2025 09:05:18 Medication Orders None recorded. Patient TargetsNo targets recorded. Patient Instructions Encounter Date Encounter Id Patient Instructions Last Modified By Organization Details Last Modified Time 04/14/2025 [id number] - Schedule and complete the CT scan of the head at the designated facility. - Follow up to review imaging results and reassess hearing and ear symptoms. - Discuss further management options based on imaging findings. [email or web address] Not available 04/18/2025 15:34:19 Please note: Parts of this encounter note have been generated by AI based on audio conversation. Patient consent was required prior to utilizing this technology. Content review was required prior to finalizing the note. [email or web address] Not available 04/14/2025 11:50:27 Reason for Referral None Reported. Problems Name Problem SNOMED Code Status Onset Date Resolution Date Notes Provider Name and Address Organization Details Recorded Time Bilateral tinnitus 78624283739 02 Active 2021 Tinnitus, bilateral ; Note: Date Diagnosed : 10/01/2021 3:19 PM (H93.13) Not Available [facility] 4 02:27:05 Itching of skin 945878992 Active 2021 Pruritus, unspecifi ed; Note: Date Diagnosed : 10/01/2021 3:19 PM (L29.9) Not Available [facility] 4 02:27:27 Impacted cerumen of bilateral ears 35436241265 27218 Active 2021 Impacted cerumen, bilateral ; Note: Date Diagnosed : 10/01/2021 3:19 PM (H61.23) Not Available [facility] 4 02:27:20 Sensorine ural hearing loss of bilateral ears 100425248 Active 2021 Sensorine ural hearing loss, bilateral ; Note: Date Diagnosed : 10/01/2021 3:48 PM (H90.3) Not Available [facility] 4 02:27:08 Atypical facial pain 64721711 Active 2024 DWAYNE CARRILLO MD [address] [place] [address],[place] [address], [place], [address] , [place] - [facility] 5 11:47:34 Migraine 82924810 Active 2024 DWAYNE CARRILLO MD [address] [place] [address],[place] [address], [place], [address] , [place] - [facility] 5 15:31:32 Problem Notes None recorded. Procedures Surgical History Date Name Laterality Status Provider Name and Address Organization Details Recorded Time 04/14/20 25 JMSNasal/Sinus Endoscopy completed DWAYNE CARRILLO MD [address] [place] [address], [place], [address], [facility] 04/18/2025 15:31:09 repair of stress incontinence by suprapubic sling completed Betzy Sauceda [facility] 04/14/2025 11:33:21 Imaging Results None recorded. Procedure Notes None recorded. Medical Equipment None Reported. Allergies Allergen ID Allergen Name Allergen Category Reaction Reaction Severity Criticality Documentation Date Start Date Code Code System Note Provider Name and Address Organization Details Recorded Time 66858 amoxicill in medicatio n hives Not available Not available 11/25/2023 723 RxNorm React ion: skin rashe s, hives ;; Not Available [facility] 4 00:56:17 Medications Name Sig Start Date Stop Date Status Note LastModified by Organization Details LastModified Time pravastat in 40 mg tablet TAKE 1 TABLET BY MOUTH DAILY 04/14 completed Not Available Not Available Not Available sumatript an 25 mg tablet TAKE 1 TABLET BY MOUTH 1 TIME NEEDED FOR MIGRAINE HEADACHE . MAY REPEAT DOSE IN 2 HOURS NEEDED active Not Available Not Available No t Available metronida zole 500 mg tablet TAKE 1 TABLET BY MOUTH TWICE DAILY FOR 7 DAYS 04/14 completed Not Available Not Available Not Available ciproflox acin 500 mg tablet TAKE 1 TABLET BY MOUTH TWICE DAILY FOR 7 DAYS 04/14 completed Not Available Not Available Not Available magnesium oxide 400 mg (241.3 mg magnesium ) tablet TAKE 1 TABLET BY MOUTH EVERY DAY active Not Available Not Available No t Available phenazopy ridine 100 mg tablet TAKE 1 TABLET BY MOUTH THREE TIMES DAILY NEEDED FOR PAIN 04/14 completed Not Available Not Available Not Available PreserVis ion AREDS 2,148 mcg-113 mg-45 mg-17.4 mg tablet 2021 active Medicati on ID: [id number] B rand Name: PreserVi elizabeth AREDS Se nd Method: E-Prescr ibed Sub s Allowed: subs OK Medic ationGen ericName : PreserVi elizabeth AREDS Not Available Not Available Not Available Calcium 500 + D 500 mg-5 mcg (200 unit) tablet 04/14 completed Medicati on ID: [id number] B rand Name: Calcium 500 + D Send Method: E-Prescr ibed Sub s Allowed: subs OK Medic ationGen ericName : Calcium 500 + D Not Available Not Available Not Available ezetimibe 10 mg tablet TAKE 1 TABLET BY MOUTH DAILY active Not Available Not Available No t Available Vitamin D3 25 mcg (1,000 unit) tablet 2021 active Medicati on ID: [id number] B rand Name: Vitamin D3 Send Method: E-Prescr ibed Sub s Allowed: subs OK Medic ationGen ericName : Vitamin D3 Not Available Not Available Not Available nitrofura ntoin monohydra te/macroc rystals 100 mg capsule TAKE 1 CAPSULE BY MOUTH EVERY 12 HOURS FOR 7 DAYS TAKE WITH MEAL OR FOOD 04/12 completed Not Available Not Available Not Available B Complex Plus Vitamin C 15 mg-10 mg-50 mg-5 mg-300 mg capsule 04/14 completed Medicati on ID: [id number] B rand Name: B Complex Plus Vitamin C Send Method: E-Prescr ibed Sub s Allowed: subs OK Medic ationGen ericName : B Complex Plus Vitamin C Not Available Not Available Not Available fluocinol one acetonide oil 0.01 % ear drops Instill 2 drop into both ears twice a week as directed 04/14 completed Medicati on ID: [id number] P rescribe d By Name: Jerel Lopez MD Brand Name: fluocino lone acetonid e oil Send Method: E-Prescr ibed Sub s Allowed: subs OK Medic ationGen ericName : fluocino lone acetonid e oil Not Available Not Available Not Available Vitals Date Recorded Body height Body mass index (BMI) Body weight Provider Name and Address Organization Details Last Updated DateTime 04/14/2025 165.1 cm 23.5 kg/m2 06536.52 g Betzy Sauceda [place] - [facility] 04/14/2025 11:32:13 Social History None recorded. Functional Status Question Answer Note LastModified by Organizat ion Details LastModified Time What is your level of alcohol consumption? Occasional [email or web address] Information not available 04/14/2025 Mental Status None recorded. Family History Nothing Reported. Medical History Condition Response Migraines Y Gynecological HistoryNo gynecological history recorded. Obstetrics History GPAL:G 0 P 0 0 0 0 Past Encounters Encounter ID Performer Location Encounter Start Date Encounter Closed Date Diagnosis/Indication Diagnosis SNOMED-CT Code Diagnosis ICD10 Code Diagnosis IMO Codes Diagnosis Note [id number] DWAYNE CARRILLO MD [facility] on [address] [place] [address] 04/14/2025 11:14:01 04/14/2025 11:50:40 Atypical facial pain 88422711 G50.1 883251 Migraine 54953336 G43.80 9 [id number] Health Concerns Section Related Observation LastModified by Organization Detai ls LastModified Time None Recorded Concern Status LastModified by Organization Details LastModified Time None Recorded Advance Directives Directive None Recorded Payers Insurance Date Sequence Insurance Name Policy Number Policy Yeh Covered Member ID Yeh Member ID Guarantor Name 04/15/2025 1 MEDICARE B-[place]: [employer] Clive Salazarury [id number] Clive Carissa Hermes 04/15/2025 2 [facility] Clive Ferrer Hermes [id number] Clive Ferrer Hermes Notes Date Note Type Note Provider Name and Address Organization Details Recorded Time 04/14/2025 text/html Clive Mirza is a 64-year-old female who presents for evaluation of persistent migraines and associated symptoms. She reports a history of intermittent migraines during her youth, but her current symptoms have been constant. She has undergone physical therapy, resident care manager rn, dry needling, massage therapy, and migraine medication, which provide temporary relief but do not resolve her symptoms. She describes constant ringing in her ears, severe itchiness in her ears, and pain radiating down her neck and into her shoulders, with swelling noted in the neck area. She recently experienced a bout of diverticulitis and was treated with Cipro, which alleviated her symptoms, including head pain and ear itchiness. However, symptoms returned shortly after discontinuing the medication. She denies fever, nasal discharge, or congestion but notes intermittent ear popping and fullness. She has a history of meningioma, with her last MRI performed a couple of years ago at [facility], which showed no changes. She has not taken daily migraine preventatives but uses sumatriptan for severe episodes. She also reports difficulty sleeping, with morning swelling in the neck and shoulders that diminishes throughout the day but never fully resolves. She recently received an eye injection for macular degeneration. She was last seen September 2021 for cerumen removal. She had audiogram at that time which showed a mild sensorineural loss.. DWAYNE CARRILLO MD [address] [place] [address], [address], [facility] - [facility] 04/18/2025 15:37:24 OBGyn Episode No OBEpisode recorded.
--- OUTSIDE RECORDS SUMMARY | 2025-05-03 12:04 | XMS_ITS | Clinical Summary ---
Author Organization [facility] Address [address] [place] [address] Phone Care Team Providers Care Baseball Scout Name Role Phone Reynold George DO Primary [...] 2023 INFLUENZA VACCINE (#1) 2025 COVID-19 VACCINE (1 - 2024-2 6 season) 2025 RSV VACCINE (1 - 1-dose [...] file Insurance MEDICARE PART A & B [facility] MEDICARE REPLACEMENT MEDICARE PART A & B MEDICARE REPLACEMENT [place] [id number] MEDICARE PART A & B [facility] MEDICARE REPLACEMENT MEDICARE PART A & B [employer] MEDICARE REPLACEMENT MEDICARE PART A & B [employer] MEDICARE REPLACEMENT MEDICARE PART A & B [employer] MEDICARE REPLACEMENT Care Teams Baseball Scout Relationship Specialty Start Date End Date Reynold George DO [address] [place] [address] PCP - General Internal Medicine 09/02/23 Additional Source Comments The information contained in this document represents components of the legal health record. It is not the complete legal health record.[facility]
== END 2025-05-03 10:16 | disposition home or self-care (01) ==
LOC: HO.US 10:15
PROVIDERS: PCP Physician Assistant Medical; Visit Provider Physician Assistant Medical
DX: I65.23 Occlusion and stenosis of bilateral carotid arteries (principal); R55 Syncope and collapse; R42 Dizziness and giddiness; R00.2 Palpitations
CPT/HCPCS: 93005; 93242; 93880

== ENCOUNTER → 2025-05-03 10:17 | Outpatient (BNV) | payer MEDICARE, OTHER, SELFPAY | PROVIDERS: PCP Physician Assistant Medical; Visit Provider Nuclear Medicine | DX: I65.23 Occlusion and stenosis of bilateral carotid arteries (principal) | CPT/HCPCS: 93880 ==

== ENCOUNTER → 2025-05-03 11:06 | Outpatient (BNV) | payer MEDICARE, OTHER, SELFPAY | PROVIDERS: PCP Physician Assistant Medical; Visit Provider Internal Medicine Cardiovascular Disease | DX: R42 Dizziness and giddiness (principal) | CPT/HCPCS: 93010 ==

== ENCOUNTER 2025-06-07 13:59 | Outpatient (REF) | payer MEDICARE, OTHER, SELFPAY ==
--- NOTE | ~2025-06-07 | US_ITS ---
EXAMINATION: US PELVIS CLINICAL INFORMATION: N83.209 - Unspecified ovarian cyst, unspecified side COMPARISON: 04/04/2025 CT TECHNIQUE: Ultrasound of the pelvis is performed using both transabdominal and transvaginal transducers along with Doppler. Transvaginal imaging is performed due to inadequate visualization transabdominally. FINDINGS: Uterus: The uterus is anteverted and measures 7.5 x 2.9 x 4.6 cm. The double wall endometrial thickness is 4 mm. The uterus is smooth in contour and has normal myometrial echogenicity. No visible fibroid. Adnexa: Right ovary measures 2.2 x 1.0 x 1.4 cm. No mass or complex cyst is identified. Left ovary: Not seen. US/US pelvic and transvaginal IMPRESSION: Unremarkable ultrasound follow-up of the right ovary. Electronically signed by: Edgar Green MD 06/07/2025 02:42 PM [facility]
--- OUTSIDE RECORDS SUMMARY | 2025-06-07 17:57 | XMS_ITS | Continuity of Care Document ---
Author Organization [place] - [facility], [facility] Address [address] [place] [address] Assessment Encounter Date Assessment Date Assessment LastModified [...] Imaging CT, sinuses, w/o contrast 2024 025 [email or web address] [facility] [place], [address] , [facility] [address], [place], [address], 04/25/2025 09:05:18 Medication Orders None recorded. Patient TargetsNo targets recorded. Patient Instructions Encounter Date Encounter Id Patient Instructions Last Modified By Organization Details Last Modified Time 04/14/2025 [id number] - Schedule and complete the CT scan of the head at the designated facility. - Follow up to review imaging results and reassess hearing and ear symptoms. - Discuss further management options based on imaging findings. [email or web address] Not available 04/18/2025 15:34:19 Please note: Parts of this encounter note have been generated by AI based on audio conversation. Patient consent was required prior to utilizing this technology. Content review was required prior to finalizing the note. [email or web address] Not available 04/14/2025 11:50:27 Reason for Referral None Reported. Results Created Date Observation Date Name Description Value Unit Range Abnormal Flag Note LastModifiedBy Organization Detail LastModifiedTime 05/07/2005/06/2025 CT, sinus es, w/o contr ast No observ ation record ed. INTERFACE [facility] [address] [address], [place], [address], 05/07/2025 07:57:11 Result Notes None recorded. Problems Name Problem SNOMED Code Status Onset Date Resolution Date Notes Provider Name and Address Organization Details Recorded Time Bilateral tinnitus 80878960454 02 Active 2021 Tinnitus, bilateral ; Note: Date Diagnosed : 10/01/2021 3:19 PM (H93.13) Not Available [facility] 4 02:27:05 Itching of skin 806911240 Active 2021 Pruritus, unspecifi ed; Note: Date Diagnosed : 10/01/2021 3:19 PM (L29.9) Not Available [facility] 4 02:27:27 Impacted cerumen of bilateral ears 78777458960 71559 Active 2021 Impacted cerumen, bilateral ; Note: Date Diagnosed : 10/01/2021 3:19 PM (H61.23) Not Available [facility] 4 02:27:20 Sensorine ural hearing loss of bilateral ears 856472802 Active 2021 Sensorine ural hearing loss, bilateral ; Note: Date Diagnosed : 10/01/2021 3:48 PM (H90.3) Not Available [facility] 4 02:27:08 Atypical facial pain 92850988 Active 2024 DWAYNE CARRILLO MD [address] [facility],[place] [address], [place], [address] , [facility] 5 11:47:34 Migraine 69520288 Active 2024 DWAYNE CARRILLO MD [address] [facility],[place] [address], [place], [address] , [facility] 5 15:31:32 Problem Notes None recorded. Procedures Surgical History Date Name Laterality Status Provider Name and Address Organization Details Recorded Time 04/14/20 JMSNasal/Sinus Endoscopy completed DWAYNE CARRILLO MD [address] [facility],[place] [address], [place], [address], [facility] 04/18/2025 15:31:09 repair of stress incontinence by suprapubic sling completed Betzy Sauceda [facility] 04/14/2025 11:33:21 Imaging Results None recorded. Procedure Notes None recorded. Medical Equipment None Reported. Allergies Allergen ID Allergen Name Allergen Category Reaction Reaction Severity Criticality Documentation Date Start Date Code Code System Note Provider Name and Address Organization Details Recorded Time 31153 amoxicill in medicatio n hives Not available Not available 11/25/2023 723 RxNorm React ion: skin rashe s, hives ;; Not Available [facility] 4 00:56:17 Medications Name Sig [...] mg tablet 2021 active Medicati on ID: [id number] B rand Name: PreserVi elizabeth AREDS Se nd Method: E-Prescr ibed Sub s Allowed: subs OK Medic ationGen ericName : PreserVi elizabeth AREDS Not Available Not Available Not Available Calcium 500 + D 500 mg-5 mcg (200 unit) tablet 04/14 completed Medicati on ID: [id number] B rand Name: Calcium 500 + D Send Method: E-Prescr ibed Sub s Allowed: subs OK Medic ationGen ericName : Calcium 500 + D Not Available Not Available Not Available ezetimibe 10 mg tablet TAKE 1 TABLET BY MOUTH DAILY active Not Available Not Available No t Available Vitamin D3 25 mcg (1,000 unit) tablet 2021 active Medicati on ID: [id number] B rand Name: Vitamin D3 Send Method: [...] mg capsule 04/14 completed Medicati on ID: [id number] B rand Name: B Complex Plus Vitamin C Send Method: E-Prescr ibed Sub s Allowed: subs OK Medic ationGen ericName : B Complex Plus Vitamin C Not Available Not Available Not Available fluocinol one acetonide oil 0.01 % ear drops Instill 2 drop into both ears twice a week as directed 04/14 completed Medicati on ID: [id number] P rescribe d By Name: Jerel Lopez MD Brand Name: fluocino lone acetonid e oil Send Method: E-Prescr ibed Sub s Allowed: subs OK Medic ationGen ericName : seema lonraji acetonid e oil Not Available Not Available Not Available Vitals Date Recorded Body height Body mass index (BMI) Body weight Provider Name and Address Organization Details Last Updated DateTime 04/14/2025 165.1 cm 23.5 kg/m2 54166.52 g Betzy Sauceda [place] - [facility] 04/14/2025 11:32:13 Social History None recorded. Functional [...] ICD10 Code Diagnosis IMO Codes Diagnosis Note [id number] DWAYNE CARRILLO MD [facility] on [address] [place] [address] 04/14/2025 11:14:01 04/14/2025 11:50:40 Atypical facial pain 53264163 G50.1 124488 Migraine 56006112 G43.80 9 [id number] Health Concerns Section Related Observation LastModified by Organization Detai ls LastModified Time None Recorded Concern Status LastModified by Organization Details LastModified Time None Recorded Payers Encounter Date Sequence Insurance Name Policy Number Policy Yeh Covered Member ID Yeh Member ID Guarantor Name 04/14/2025 1 MEDICARE B-[place]: [employer] Clive Mirza [id number] Clive Ferrer Hermes 04/14/2025 2 [facility] Clive Mirza [id number] Clive Carissa Hermes Notes Date Note Type Note Provider Name and Address Organization Details Recorded Time 04/14/2025 text/html Clive Mirza is a 64-year-old female who presents for evaluation of persistent migraines and associated symptoms. She reports a history of intermittent migraines during her youth, but her current symptoms have been constant. She has undergone physical therapy, home care assistant, dry needling, massage therapy, and migraine medication, [...] performed a couple of years ago at [facility], which showed no changes. She has not [...] a mild sensorineural loss.. DWAYNE CARRILLO MD [address] [place] [address], [address], [facility] - [facility] 04/18/2025 15:37:24 OBGyn Episode No OBEpisode recorded.
--- OUTSIDE RECORDS SUMMARY | 2025-06-07 17:57 | XMS_ITS | Data Portability ---
Author Organization [place] - [facility], Allergy Address [address] [address] Assessment Encounter Date Assessment Date Assessment LastModified [...] Imaging CT, sinuses, w/o contrast 2024 [id number] [email or web address] [facility], [address] , [facility] [address], [place], [address], 04/25/2025 09:05:18 Medication Orders None recorded. Patient TargetsNo targets recorded. Patient Instructions Encounter Date Encounter Id Patient Instructions Last Modified By Organization Details Last Modified Time 04/14/2025 [id number] - Schedule and complete the CT scan of the head at the designated facility. - Follow up to review imaging results and reassess hearing and ear symptoms. - Discuss further management options based on imaging findings. liza Not available 04/18/2025 15:34:19 Please note: Parts of this encounter note have been generated by AI based on audio conversation. Patient consent was required prior to utilizing this technology. Content review was required prior to finalizing the note. [email or web address] Not available 04/14/2025 11:50:27 Reason for Referral None Reported. Results Created Date Observation Date Name Description Value Unit Range Abnormal Flag Note LastModifiedBy Organization Detail LastModifiedTime 05/07/2005/06/2025 CT, sinus es, w/o contr ast No observ ation record ed. INTERFACE [facility] [address] [address], [place], [address], 05/07/2025 07:57:11 Result Notes None recorded. Problems Name Problem SNOMED Code Status Onset Date Resolution Date Notes Provider Name and Address Organization Details Recorded Time Bilateral tinnitus 77129523586 02 Active 2021 Tinnitus, bilateral ; Note: Date Diagnosed : 10/01/2021 3:19 PM (H93.13) Not Available [facility] 4 02:27:05 Itching of skin 384213034 Active 2021 Pruritus, unspecifi ed; Note: Date Diagnosed : 10/01/2021 3:19 PM (L29.9) Not Available [facility] 4 02:27:27 Impacted cerumen of bilateral ears 59089272768 91836 Active 2021 Impacted cerumen, bilateral ; Note: Date Diagnosed : 10/01/2021 3:19 PM (H61.23) Not Available [facility] 4 02:27:20 Sensorine ural hearing loss of bilateral ears 319856770 Active 2021 Sensorine ural hearing loss, bilateral ; Note: Date Diagnosed : 10/01/2021 3:48 PM (H90.3) Not Available [facility] 4 02:27:08 Atypical facial pain 06532290 Active 2024 DWAYNE CARRILLO MD [address] [facility] [address], [facility] [place], [address] , [facility] - [facility] 5 11:47:34 Migraine 78957171 Active 2024 DWAYNE CARRILLO MD 100 [facility], [facility] [place], [address] , [facility] - [facility] 5 15:31:32 Problem Notes None recorded. Procedures Surgical History Date Name Laterality Status Provider Name and Address Organization Details Recorded Time 04/14/20 JMSNasal/Sinus Endoscopy completed DWAYNE CARRILLO MD [address] [facility],[place] [address], [place], [address], [facility] 04/18/2025 15:31:09 repair of stress incontinence by suprapubic sling completed Betzy Sauceda [facility] 04/14/2025 11:33:21 Imaging Results None recorded. Procedure Notes None recorded. Medical Equipment None Reported. Allergies Allergen ID Allergen Name Allergen Category Reaction Reaction Severity Criticality Documentation Date Start Date Code Code System Note Provider Name and Address Organization Details Recorded Time 37620 amoxicill in medicatio n hives Not available Not available 11/25/2023 723 RxNorm React ion: skin rashe s, hives ;; Not Available [facility] 4 00:56:17 Medications Name Sig Start Date [...] mg tablet 2021 active Medicati on ID: [id number] B rand Name: PresColin RUFF Se nd Method: E-Prescr ibed Sub s Allowed: subs OK Medic ationGen ericName : PreserVi elizabeth AREDS Not Available Not Available Not Available Calcium 500 + D 500 mg-5 mcg (200 unit) tablet 04/14 completed Medicati on ID: [id number] B rand Name: Calcium 500 + D Send Method: E-Prescr ibed Sub s Allowed: subs OK Medic ationGen ericName : Calcium 500 + D Not Available Not Available Not Available ezetimibe 10 mg tablet TAKE 1 TABLET BY MOUTH DAILY active Not Available Not Available No t Available Vitamin D3 25 mcg (1,000 unit) tablet 2021 active Medicati on ID: 994248 B rand Name: Vitamin D3 Send Method: [...] mg capsule 04/14 completed Medicati on ID: [id number] B rand Name: B Complex Plus Vitamin C Send Method: E-Prescr ibed Sub s Allowed: subs OK Medic ationGen ericName : B Complex Plus Vitamin C Not Available Not Available Not Available fluocinol one acetonide oil 0.01 % ear drops Instill 2 drop into both ears twice a week as directed 04/14 completed Medicati on ID: [id number] P rescribe d By Name: Jerel Lopez [...] Updated DateTime 04/14/2025 165.1 cm 23.5 kg/m2 46320.52 g Betzy [place] - [facility] 04/14/2025 11:32:13 Social History None recorded. [...] ICD10 Code Diagnosis IMO Codes Diagnosis Note [id number] DWAYNE CARRILLO MD [facility] on [address] [place] [address] 04/14/2025 11:14:01 04/14/2025 11:50:40 Atypical facial pain 92298895 G50.1 [id number] Migraine 51059913 G43.80 9 [id number] Health Concerns Section Related Observation LastModified by Organization Detai ls LastModified Time None Recorded Concern Status LastModified by Organization Details LastModified Time None Recorded Advance Directives Directive None Recorded Payers Insurance Date Sequence Insurance Name Policy Number Policy Yeh Covered Member ID Yeh Member ID Guarantor Name 04/15/2025 1 [place] [employer] Clive Mirza [id number] Clive Mirza 04/15/2025 2 [facility] Clive Mirza [id number] Clive Mirza Notes Date Note Type Note Provider Name and Address Organization Details Recorded Time 04/14/2025 text/html Clive Mirza is a 64-year-old female who presents for evaluation of persistent migraines and associated symptoms. She reports a history of intermittent migraines during her youth, but her current symptoms have been constant. She has undergone physical therapy, senior care provider, dry needling, massage therapy, and migraine medication, [...] performed a couple of years ago at [facility], which showed no changes. She [...] a mild sensorineural loss.. DWAYNE CARRILLO MD [address] [place] [address], [place], [address], [facility] - [facility] 04/18/2025 15:37:24 OBGyn Episode No OBEpisode recorded.
--- OUTSIDE RECORDS SUMMARY | 2025-06-07 17:57 | XMS_ITS | Clinical Summary ---
Author Organization [facility] Address [address] [place] [address] Phone Care Team Providers Care Pharmaceutical Detailer Name Role Phone Reynold George DO Primary [...] file Insurance MEDICARE PART A & B [facility] MEDICARE REPLACEMENT MEDICARE PART A & B MEDICARE REPLACEMENT [place] [id number] MEDICARE PART A & B [facility] MEDICARE REPLACEMENT MEDICARE PART A & B [employer] MED[employer]ARE REPLACEMENT MEDICARE PART A & B [employer] MEDICARE REPLACEMENT MEDICARE PART A & B [employer] MEDICARE REPLACEMENT Care Teams Pharmaceutical Detailer Relationship Specialty Start Date End Date Reynold George DO [address] [place] [id number] PCP - General Internal Medicine 09/02/23 Additional Source Comments The information contained in this document represents components of the legal health record. It is not the complete legal health record.[facility]
== END 2025-06-07 14:00 | disposition home or self-care (01) ==
LOC: HO.HMGCX 13:59
PROVIDERS: PCP Physician Assistant Medical; Visit Provider Physician Assistant Medical
DX: N83.209 Unspecified ovarian cyst, unspecified side (principal)
CPT/HCPCS: 76830; 76856

== ENCOUNTER → 2025-06-07 14:08 | Outpatient (BNV) | payer MEDICARE, OTHER, SELFPAY | PROVIDERS: PCP Physician Assistant Medical; Visit Provider Radiology Diagnostic Radiology | DX: N83.201 Unspecified ovarian cyst, right side (principal) | CPT/HCPCS: 76830; 76856 ==